=== PATIENT | female | born 2000 ===

== ENCOUNTER 2021-08-23 22:42 | Inpatient (IN) | payer OTHER ==
[~2021-08-23] VITALS: Ht 149.9 cm; Wt 94.4 kg
[2021-08-23 23:00] VITALS: BP 123/74
--- OUTSIDE RECORDS SUMMARY | 2021-08-23 23:35 | CCD | Continuity of Care Document ---
Author Author Ritika LR M.D. Organization Unknown Address [address] [place] [address] Phone [phone] Problems Description No Information Available Social History Type Date Description Comments Sex Unknown Allergies and adverse reactions Description No Information Available Medications Description No Information Available Immunizations Description No Information Available Vital Signs Description No Information Available Results Description No Information Available Procedures Date Code Description Status 08/04/2021 27118 Office/Outpatient Established Mo d MDM 30-39 Min Completed 05/30/2021 23329 Office/Outpatient Established Mo d MDM 30-39 Min Completed 05/02/2021 27926 EEG Recording Awake & Asleep Com pleted 05/02/2021 73356 EEG Recording Awake & Asleep Com pleted 04/13/2021 08790 MRI Brain W/O Contrast Completed 04/13/2021 11558 MRI Brain W/O Contrast Completed 04/13/2021 80450 Magnetic Resonance Angiography N elida W/O Contrast Materials Completed 04/13/2021 80252 Magnetic Resonance Angiography N elida W/O Contrast Materials Completed 04/13/2021 44070 Magnetic Resonance Angiogtaphy H ead W/O Contrast Material(S) Completed 04/13/2021 89410 Magnetic Resonance Angiogtaphy H ead W/O Contrast Material(S) Completed 03/28/2021 26973 Office Consultation Level 4 Comp leted Medical Devices Description No Information Available Encounters Type Date Location Provider Dx Diagnosis Office Visit 08/04/2021 9:45a Main office - [place] M.D. I72.9 Aneurysm of unspecified site R55 Syncope and collapse R94.02 Abnormal brain scan Office Visit 05/30/2021 9:15a Main office - [place] M.D. I72.9 Aneurysm of unspecified site R55 Syncope and collapse R94.02 Abnormal brain scan Office Visit 03/28/2021 12:30p Main office - [place] Florinda rL M.D. R55 Syncope and collapse R42 Dizziness and giddiness R25.8 Other abnormal involuntary m ovements H53.8 Other visual disturbances Assessments Date Code Description Provider 08/04/2021 I72.9 Aneurysm of unspecified site Ruthie Lr M.D. 08/04/2021 R55 Syncope and collapse Florinda sanon M.D. 08/04/2021 R94.02 Abnormal brain scan Florinda Lr M.D. 05/30/2021 I72.9 Aneurysm of unspecified site Ruthie Lr M.D. 05/30/2021 R55 Syncope and collapse Florinda sanon M.D. 05/30/2021 R94.02 Abnormal brain scan Florinda Lr M.D. 05/02/2021 R55 Syncope and collapse Florinda sanon M.D. 05/02/2021 R55 Syncope and collapse EEG 04/13/2021 R55 Syncope and collapse Apoorva Lr M.D. 04/13/2021 R55 Syncope and collapse MRI 04/13/2021 R42 Dizziness and giddiness Apoorva Schuster M.D. 04/13/2021 R42 Dizziness and giddiness MRI 03/28/2021 R55 Syncope and collapse Florinda sanon M.D. 03/28/2021 R42 Dizziness and giddiness Florinda ordonez M.D. 03/28/2021 R25.8 Other abnormal involuntary movem ents Florinda Lr M.D. 03/28/2021 H53.8 Other visual disturbances Florinda Lr M.D. Plan of Treatment Future Appointment(s):* 10/13/2021 10:15 am - Florinda Lr M.D. at Main office - [place] Functional Status Description No Information Available Mental Status Description No Information Available Referrals Refer to Reason for Referral Status Appt Date Created Created
--- OUTSIDE RECORDS SUMMARY | 2021-08-23 23:36 | CCD ---
Author Author [facility] Organization [facility] Address Unknown Phone Unavailable Care Team Providers Care Tangled Yarn Spool Straightener Name Role Phone Jennifer Vang Unavailable PROBLEMS ALLERGIES No Known Allergies ENCOUNTERS from 1999 to 2021-07-28 IMMUNIZATIONS SOCIAL HISTORY REASON FOR REFERRAL No Information VITAL SIGNS MEDICATIONS PROCEDURES No Information RESULTS No Results REASON FOR VISIT MEDICAL (GENERAL) HISTORY Goals Section Health Concerns MEDICAL EQUIPMENT No Information MENTAL STATUS FUNCTIONAL STATUS ASSESSMENTS No Information PLAN OF TREATMENT Insurance Providers
--- OUTSIDE RECORDS SUMMARY | 2021-08-23 23:36 | CCD ---
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 Role Phone Patricio Jim Unavailable PROBLEMS Type Condition ICD9-CM Code [id number] Code Onset Dates Condition S tatus W/U Status Risk SNOMED Code Notes Problem Supervision of other normal Z34.80 Ac tive confirm [id number] ALLERGIES No Known Allergies ENCOUNTERS from 1999 to 2021-06-20 Encounter Location Date Provider Diagnosis [facility] [address] [place] [address] [place] [address] May, Jim Curry Encounter for superv ision of low-risk first in third trimester Z34.03 and 29 weeks gestation of Z3A.29 IMMUNIZATIONS No Information SOCIAL HISTORY Tobacco Use: Social History Observation Description Date Details (start date - stop date) Never Smoker Sex Assigned At : Social History Observation Description Sex Assigned At Unknown Alcohol Screening: Question Answer Notes Did you have a drink containing alcohol in the past year? No Points 0 Interpretation Negative Tobacco Use: Question Answer Notes Are you a: never smoker REASON FOR REFERRAL No Information VITAL SIGNS Weight 187.4 lbs May, Height 59 in May, BMI 37.85 kg/m2 May, Blood pressure systolic 118 mm Hg May, Blood pressure diastolic 70 mm Hg May, MEDICATIONS Medication SIG (Take, Route, Frequency, Duration) Notes Start Da te End Date Status Pepcid 40 MG 1 tablet at bedtime Orally Once a day for 30 day(s) May, Active 27-1 MG 1 tablet Orally Once a day Active PROCEDURES No Information RESULTS No Results REASON FOR VISIT 4 WK PN MEDICAL (GENERAL) HISTORY Type Description Date Medical History Anxiety Surgical History D and C Surgical History Tonsils and adnoids Surgical History wisdom teeth Surgical History Colposcopy x 2 Hospitalization History Surgical related Goals Section No Information Health Concerns No Information MEDICAL EQUIPMENT No Information MENTAL STATUS No Information FUNCTIONAL STATUS No Information ASSESSMENTS Encounter Date Diagnosis Assessment Notes Treatment Notes Treatm ent Clinical Notes May, Encounter for supervision of low-risk first in third trimester (ICD-10 - Z34.03) May, 29 weeks gestation of (ICD-10 - Z3A.29 ) PLAN OF TREATMENT Medication Medication Name Sig Start Date Stop Date Pepcid 40 MG 1 tablet at bedtime Orally Once a day for 30 day (s) May, Next Appt Details Provider Name:Jim Curry, 2021-06-28 03:00:00 PM, [address] [facility], , [place], [address], Insurance Providers Payer Name Payer Address Payer Phone Insured Name Patient Relati onship to Insured Coverage Start Date Coverage End Date [place] [phone] ALIX RAO self
--- OUTSIDE RECORDS SUMMARY | 2021-08-23 23:36 | CCD ---
Author Author [facility] Organization [facility] Address Unknown Phone Unavailable Care Team Providers Care Tier Over Name Role Phone Joseline Barahona Unavailable PROBLEMS Type Condition ICD9-CM Code [id number] Code Onset Dates Condition S tatus W/U Status Risk SNOMED Code Notes Problem Supervision of other normal Z34.80 Ac tive confirm [id number] ALLERGIES No Known Allergies ENCOUNTERS from 1999 to 2021-08-09 Encounter Location Date Provider Diagnosis [facility] [address] [place] [address] [place] [address] Jul, Joseline Barahona IMMUNIZATIONS Vaccine Route Administration Date Status TDAP 0.5mL Boostrix IM Intramuscular Jul 11, 2021 Administere d SOCIAL HISTORY Tobacco Use: Social History Observation [...] REASON FOR REFERRAL No Information VITAL SIGNS No information MEDICATIONS Medication SIG (Take, Route, Frequency, Duration) Notes Start Da te End Date Status Iron 325 (65 Fe) MG 1 tablet Orally Once a day Active 27-1 MG 1 tablet Orally Once a day Active Pepcid 40 MG 1 tablet at bedtime Orally Once a day for 30 day(s) May, Active PROCEDURES No Information RESULTS No Results REASON FOR VISIT appt MEDICAL (GENERAL) HISTORY Type Description Date Medical History Anxiety Surgical History D and C Surgical History Tonsils and adnoids Surgical History wisdom teeth Surgical History Colposcopy x 2 Hospitalization History Surgical related Goals Section No Information Health Concerns No Information MEDICAL EQUIPMENT No Information MENTAL STATUS No Information FUNCTIONAL STATUS No Information ASSESSMENTS No Information PLAN OF TREATMENT Next Appt Details Provider Name:Joseline Gavi Lunafatmata, 2021-08-16 01:20:00 PM, [address] [place] [address], , [place], [address], Provider Name:Jim Curry, 2021-08-23 10:45:00 AM, [address] [place] [address], , [place], [address], Insurance Providers Payer Name Payer Address Payer Phone Insured Name Patient Relati onship to Insured Coverage Start Date Coverage End Date [place] [phone] ALIX RAO self
--- OUTSIDE RECORDS SUMMARY | 2021-08-23 23:36 | CCD | Continuity of Care Document ---
Author Author Ritika LR M.D. Organization Unknown Address [address] [place] [address] Phone [phone] Problems Description No Information Available Social History Type Date Description Comments Sex Unknown Allergies and adverse reactions Description No Information Available Medications Description No Information Available Immunizations Description No Information Available Vital Signs Description No Information Available Results Description No Information Available Procedures Date Code Description Status 05/30/2021 03848 Office/Outpatient Established Mo d MDM 30-39 Min Completed 05/02/2021 58152 EEG Recording Awake & Asleep Com pleted 05/02/2021 67782 EEG Recording Awake & Asleep Com pleted 04/13/2021 17981 MRI Brain W/O Contrast Completed 04/13/2021 65220 MRI Brain W/O Contrast Completed 04/13/2021 86809 Magnetic Resonance Angiography N elida W/O Contrast Materials Completed 04/13/2021 05426 Magnetic Resonance Angiography N elida W/O Contrast Materials Completed 04/13/2021 88060 Magnetic Resonance Angiogtaphy H ead W/O Contrast Material(S) Completed 04/13/2021 50926 Magnetic Resonance Angiogtaphy H ead W/O Contrast Material(S) Completed 03/28/2021 45871 Office Consultation Level 4 Comp leted Medical Devices Description No Information Available Encounters Type Date Location Provider Dx Diagnosis Office Visit 05/30/2021 9:15a [place] M.[place]. I72.9 Aneurysm of unspecified site R55 Syncope and collapse R94.02 Abnormal brain scan Office Visit 03/28/2021 12:30p [place] office - [place] M.D. R55 Syncope and collapse R42 Dizziness and giddiness R25.8 Other abnormal involuntary m ovements H53.8 Other visual disturbances Assessments Date Code Description Provider 05/30/2021 I72.9 Aneurysm of unspecified site Ruthie [...] disturbances Florinda Lr M.D. Plan of Treatment No Information Available Functional Status Description No Information Available Mental Status Description No Information Available Referrals Refer to Reason for Referral Status Appt Date Created Created
--- OUTSIDE RECORDS SUMMARY | 2021-08-23 23:36 | CCD ---
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 Role Phone Patricio Jim Unavailable PROBLEMS Type Condition ICD9-CM Code [id number] Code Onset Dates Condition S tatus W/U Status Risk SNOMED Code Notes Problem Supervision of other normal Z34.80 Ac tive confirm [id number] ALLERGIES No Known Allergies ENCOUNTERS from 1999 to 2021-07-10 Encounter Location Date Provider Diagnosis [facility] [address] [place] [address] [place] [address] Jun, Jim Curry Encounter for superv ision of normal first in third trimester Z34.03 and 31 weeks gestation of Z3A.31 IMMUNIZATIONS No Information SOCIAL HISTORY Tobacco Use: [...] FOR REFERRAL No Information VITAL SIGNS Weight 190.8 lbs Jun, Weight-kg 86.55 kg Jun, Height 59 in Jun, BMI 38.537 kg/m2 Jun, Blood pressure systolic 118 mm Hg Jun, Blood pressure diastolic 74 mm Hg Jun, MEDICATIONS Medication SIG (Take, Route, Frequency, Duration) Notes Start Da te End Date Status Pepcid 40 MG 1 tablet at bedtime Orally Once a day for 30 day(s) May, Active 27-1 MG 1 tablet Orally Once a day Active PROCEDURES from 1999 to 2021-07-10 Procedure Date Ordered Result Body Site Imm: Boostrix 0.5mL IM TDAP 2021-06-28 N/A RESULTS No Results REASON FOR VISIT 2 wk pn MEDICAL (GENERAL) HISTORY Type Description Date Medical [...] Notes Treatment Notes Treatm ent Clinical Notes Jun, Encounter for supervision of normal first in third trimester (ICD-10 - Z34.03) Jun, 31 weeks gestation of (ICD-10 - Z3A.31 ) PLAN OF TREATMENT Medication Medication Name Sig Start Date Stop Date Pepcid 40 MG 1 tablet at bedtime Orally Once a day for 30 day (s) May, Next Appt Details Provider Name:Jim Curry, 2021-07-11 02:15:00 PM, [address] [facility], , [place], [address], Insurance Providers Payer Name Payer Address Payer Phone Insured Name Patient Relati onship to Insured Coverage Start Date Coverage End Date [address] [phone] ALIX RAO self
--- OUTSIDE RECORDS SUMMARY | 2021-08-23 23:36 | CCD ---
Author Author [facility] Organization [facility] Address Unknown Phone Unavailable Care Team Providers Care Tie Inspector Name Role Phone Joseline Barahona Unavailable PROBLEMS Type Condition ICD9-CM Code WCK51-CF Code Onset Dates Condition S tatus W/U Status Risk SNOMED Code Notes Problem Supervision of other normal Z34.80 Ac tive confirm [id number] ALLERGIES No Known Allergies ENCOUNTERS from 1999 to 2021-08-09 Encounter Location Date Provider Diagnosis [facility] [address] [place] [address] [place] [address] Jul, Joseline Barahona Encounter for sup ervision of normal first in third trimester Z34.03 and 37 weeks gestation of Z3A.37 IMMUNIZATIONS Vaccine Route Administration Date Status TDAP [...] FOR REFERRAL No Information VITAL SIGNS Weight 201 lbs Jul, Weight-kg 91.17 kg Jul, Height 59 in Jul, BMI 40.597 kg/m2 Jul, Blood pressure systolic 114 mm Hg Jul, Blood pressure diastolic 78 mm Hg Jul, MEDICATIONS Medication SIG (Take, Route, Frequency, Duration) Notes Start Da te End Date Status Iron 325 (65 Fe) MG 1 tablet Orally Once a day Active 27-1 MG 1 tablet Orally Once a day Active Pepcid 40 MG 1 tablet at bedtime Orally Once a day for 30 day(s) May, Active PROCEDURES No Information RESULTS No Results REASON FOR VISIT 1 WK PN MEDICAL (GENERAL) HISTORY Type Description [...] Notes Treatment Notes Treatm ent Clinical Notes Jul, Encounter for supervision of normal first in third trimester (ICD-10 - Z34.03) Jul, 37 weeks gestation of (ICD-10 - Z3A.37 ) PLAN OF TREATMENT Next Appt Details 1 Week Reason:- Routine follow up Provider Name:Joseline Barahona, 2021-08-16 01:20:00 PM, [address] [place] [phone], [place], [address], Provider Name:Jim Curry, 2021-08-23 10:45:00 AM, [address] [place] [phone], [place], [address], Follow Up:1 Week- Routine follow up Insurance Providers Payer Name Payer Address Payer Phone Insured Name Patient Relati onship to Insured Coverage Start Date Coverage End Date [address] [phone] ALIX RAO self
--- OUTSIDE RECORDS SUMMARY | 2021-08-23 23:36 | CCD ---
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 Name Role Phone Taj Jennifer Unavailable PROBLEMS Type Condition ICD9-CM Code QIR24-DL Code Onset Dates Condition S tatus W/U Status Risk SNOMED Code Notes Problem Supervision of other normal Z34.80 Ac tive confirm [id number] ALLERGIES No Known Allergies ENCOUNTERS from 1999 to 2021-08-13 Encounter Location Date Provider Diagnosis [facility] [address] [facility] [phone] [place] [address] Jul, Jennifer Taj Encounter for superv ision of normal first in third trimester Z34.03 IMMUNIZATIONS Vaccine Route Administration Date Status TDAP [...] FOR REFERRAL No Information VITAL SIGNS Weight 198.2 lbs Jul, Weight-kg 89.9 kg Jul, Height 59 in Jul, BMI 40.032 kg/m2 Jul, Blood pressure systolic 118 mm Hg Jul, Blood pressure diastolic 82 mm Hg Jul, MEDICATIONS Medication SIG (Take, Route, Frequency, Duration) Notes Start Da te End Date Status Iron 325 (65 Fe) MG 1 tablet Orally Once a day Active 27-1 MG 1 tablet Orally Once a day Active Pepcid 40 MG 1 tablet at bedtime Orally Once a day for 30 day(s) May, Active PROCEDURES No Information RESULTS Component Value Reference Range GROUP B STREP CULTURE Reviewed date:08/13/2021 20:28:19 Interpretation: Performing Lab:[facility], [facility] [address] [facility] [address] , ,[place] [address] REASON FOR VISIT 2 wk pn MEDICAL [...] first in third trimester (ICD-10 - Z34.03) PLAN OF TREATMENT Next Appt Details 1 Week Reason:pn Provider Name:Joseline Barahona, 2021-08-16 01:20:00 PM, [address] [place] [address], , [place], [address], Provider Name:Jim Crury, 2021-08-23 10:45:00 AM, [address] [place] [address], , [place], [address], Follow Up:1 Weekpn Insurance Providers Payer Name Payer Address Payer Phone Insured Name Patient Relati onship to Insured Coverage Start Date Coverage End Date [address] [phone] ALIX RAO self
--- OUTSIDE RECORDS SUMMARY | 2021-08-23 23:36 | CCD ---
Author Author [facility] Organization [facility] Address Unknown Phone Unavailable Care Team Providers Care Parakeet Raiser Name Role Phone Kevyn Mullins MD Unavailable Unavailable Kevyn Mullins MD Unavailable Unavailable Kevyn Mullins MD Unavailable Unavailable Kevyn Mullins MD Unavailable Unavailable Kevyn Mullins MD Unavailable Unavailable Kevyn Mullins MD Unavailable Unavailable SANJEEV LYNCH MD Unavailable Unavailable SANJEEV LYNCH MD Unavailable Unavailable SANJEEV LYNCH MD Unavailable Unavailable SANJEEV LYNCH MD Unavailable Unavailable SANJEEV LYNCH MD Unavailable Unavailable SANJEEV LYNCH MD Unavailable Unavailable SANJEEV LYNCH MD Unavailable Unavailable SANJEEV LYNCH MD Unavailable Unavailable SANJEEV LYNCH MD Unavailable Unavailable SANJEEV LYNCH MD Unavailable Unavailable SANJEEV LYNCH MD Unavailable Unavailable SANJEEV LYNCH MD Unavailable Unavailable SANJEEV LYNCH MD Unavailable Unavailable SANJEEV LYNCH MD Unavailable Unavailable SANJEEV LYNCH MD Unavailable Unavailable SANJEEV LYNCH MD Unavailable Unavailable SANJEEV LYNCH MD Unavailable Unavailable SANJEEV LYNCH MD Unavailable Unavailable SANJEEV LYNCH MD Unavailable Unavailable SANJEEV LYNCH MD Unavailable Unavailable SANJEEV LYNCH MD Unavailable Unavailable SANJEEV LYNCH MD Unavailable Unavailable SANJEEV LYNCH MD Unavailable Unavailable SANJEEV LYNCH MD Unavailable Unavailable SANJEEV LYNCH MD Unavailable Unavailable SANJEEV LYNCH MD Unavailable Unavailable SANJEEV LYNCH MD Unavailable Unavailable SANJEEV LYNCH MD Unavailable Unavailable CRIS, SANJEEV MD Unavailable Unavailable CRIS, SANJEEV MD Unavailable Unavailable CRIS, SANJEEV MD Unavailable Unavailable CRIS, SANJEEV MD Unavailable Unavailable CRIS, SANJEEV MD Unavailable Unavailable CRIS, SANJEEV MD Unavailable Unavailable CRIS, SANJEEV MD Unavailable Unavailable CRIS, SANJEEV MD Unavailable Unavailable CRIS, SANJEEV MD Unavailable Unavailable CRIS, SANJEEV MD Unavailable Unavailable CRIS, SANJEEV MD Unavailable Unavailable CRIS, SANJEEV MD Unavailable Unavailable CRIS, SANJEEV MD Unavailable Unavailable CRIS, SANJEEV MD Unavailable Unavailable CRIS, SANJEEV MD Unavailable Unavailable [facility] Unavailable Unavailable Re-disclosure Warning The records that you are about to access may contain information from federally-assisted alcohol or drug abuse programs. If such information is present, then the following federally mandated warning applies: This information has been disclosed to you from records protected by federal confidentiality rules (42 CFR part 2). The federal rules prohibit you from making any further disclosure of this information unless further disclosure is expressly permitted by the written consent of the person to whom it pertains or as otherwise permitted by 42 CFR part 2. A general authorization for the release of medical or other information is NOT sufficient for this purpose. The Federal rules restrict any use of the information to criminally investigate or prosecute any alcohol or drug abuse patient.The records that you are about to access may contain highly sensitive health information, the redisclosure of which is protected by Article 27-F of the [facility] Public Health law. If you continue you may have access to information: Regarding HIV / AIDS; Provided by facilities licensed or operated by the [facility] Office of Mental Health; or Provided by the [facility] Office for People With Developmental Disabilities. If such information is present, then the following [facility] mandated warning applies: This information has been disclosed to you from confidential records which are protected by state law. State law prohibits you from making any further disclosure of this information without the specific written consent of the person to whom it pertains, or as otherwise permitted by law. Any unauthorized further disclosure in violation of state law may result in a fine or detention sentence or both. A general authorization for the release of medical or other information is NOT sufficient authorization for further disc losure. Family History Family Member Name Family Member Gender Family Member Status Date o f Status Description Data Source(s) Unknown Unknown Problem MEDENT ([facility]) Unknown Unknown Problem MEDENT ([facility]) Unknown Unknown Problem MEDENT ([facility]) Encounters Encounter Providers Location Date Indications Data Source(s ) ( ESTOB) enter Est OB [address] [place] [address] 08/08/2021 12:00:00 AM EST eCW1 ([facility]) Unknown [address] [facility] [address] 08/08/2021 12:00:00 AM EST eCW1 ([facility]) Outpatient Attender: SANJEEV LYNCH MD Main office - [facility] 08/04/2021 08:45:00 AM EST MEDENT ([facility]YVI Norman) ( ESTOB) WCenter Est OB [address] [place] [address] 08/02/2021 12:00:00 AM EST eCW1 ([facility]) [place] [address] [facility] [address] 08/02/2021 12:00:00 AM EST eCW1 ([facility]) ( ESTOB) WCenter Est OB [address] [place] [address] 07/27/2021 12:00:00 AM EST eCW1 ([facility]) [place] [address] [facility] [address] 07/27/2021 12:00:00 AM EST eCW1 ([facility]) ( ESTOB) enter Est OB [address] [place] [address] 06/28/2021 12:00:00 AM EDT eCW1 ([facility]) ( ESTOB) enter Est OB [address] [place] [address] 06/14/2021 12:00:00 AM EDT eCW1 ([facility]) Outpatient Attender: SANJEEV LYNCH MD Main office - [facility] 05/30/2021 09:15:00 AM EDT MEDENT ([facility]) Outpatient Attender: SANJEEV LYNCH MD Main office - [facility] 03/28/2021 12:30:00 PM EDT RODRÍGUEZ ([facility] DEYVI huerta) Emergency Attender: Kevyn Mullins MDConsultant: [facility]IN[facility]ARTINEZ 12/23/2020 02:10:00 PM EDT - 12/23/2020 07:00:00 PM EDT [facility] Patient discharged. Immunizations Vaccine Date Status Description Data Source(s) Tdap 07/11/2021 02:42:00 PM EDT completed e CW1 ([facility]) Tdap 07/11/2021 02:42:00 PM EDT completed e CW1 ([facility]) Tdap 07/11/2021 02:42:00 PM EDT completed e CW1 ([facility]) Tdap 07/11/2021 02:42:00 PM EDT completed e CW1 ([facility]) Tdap 07/11/2021 02:42:00 PM EDT completed e CW1 ([facility]) Tdap 07/11/2021 02:42:00 PM EDT completed e CW1 ([facility]) Medications Medication Brand Name Start Date Product Form Dose Route Admi nistrative Instructions Pharmacy Instructions Status Indications Reaction Description Data Source(s) Famotidine 40 MG Oral Tablet [Pepcid] Pepcid 40 MG Pepcid 40 MG 06/14/2021 12:00:00 AM EDT 1.0 {tablet_at_bedtime} active Pepcid 40 MG eCW1 ([facility]) Famotidine 40 MG Oral Tablet [Pepcid] Pepcid 40 MG Pepcid 40 MG 06/14/2021 12:00:00 AM EDT 1.0 {tablet_at_bedtime} active Pepcid 40 MG eCW1 ([facility]) Famotidine 40 MG Oral Tablet [Pepcid] Pepcid 40 MG Pepcid 40 MG 06/14/2021 12:00:00 AM EDT 1.0 {tablet_at_bedtime} active Pepcid 40 MG eCW1 ([facility]) Famotidine 40 MG Oral Tablet [Pepcid] Pepcid 40 MG Pepcid 40 MG 06/14/2021 12:00:00 AM EDT 1.0 {tablet_at_bedtime} active Pepcid 40 MG eCW1 ([facility]) Famotidine 40 MG Oral Tablet [Pepcid] Pepcid 40 MG Pepcid 40 MG 06/14/2021 12:00:00 AM EDT 1.0 {tablet_at_bedtime} active eCW1 ([facility]) Famotidine 40 MG Oral Tablet [Pepcid] Pepcid 40 MG Pepcid 40 MG 06/14/2021 12:00:00 AM EDT 1.0 {tablet_at_bedtime} active eCW1 ([facility]) Famotidine 40 MG Oral Tablet [Pepcid] Pepcid 40 MG Pepcid 40 MG 06/14/2021 12:00:00 AM EDT 1.0 {tablet_at_bedtime} active Pepcid 40 MG eCW1 ([facility]) Famotidine 40 MG Oral Tablet [Pepcid] Pepcid 40 MG Pepcid 40 MG 06/14/2021 12:00:00 AM EDT 1.0 {tablet_at_bedtime} active Pepcid 40 MG eCW1 ([facility]) Insurance Providers Payer name Policy type / Coverage type Policy ID Covered constitution party ID Covered constitution party's relationship to jackson Policy Jackson Plan Information [employer] [id number] FA2 [id number] [employer] [id number] FA2 [id number] [facility] [id number] FA2 [id number] [facility] [id number] CHILD [id number] 2 [facility] Commercial [id number] Family Dependent [id number] [facility] [id number] [place] [id number] [facility] [id number] CHILD [id number] [employer] [id number] [employer] [place] [id number] [place] [id number] [facility] [id number] CHILD [id number] 2 OTHER NO FAULT [id number] S [id number] [facility] [id number] CHILD [id number] 2 OTHER NO FAULT UNAVAILABLE KYLE VAILABLE r/[facility]/[employer] Maintenance Organization (HMO) [id number] Family Dependent [id number] [employer] (HMO) [id number] Family Dependent [employer] PPO O [id number] C [id number] [employer] SELF [id number] CHILD [id number] [employer] Commercial [id number] Family Dependent [employer] SELF [id number] CHILD [id number] [facility] 000 SP [id number] [facility] [id number] SP [id number] [facility] [id number] FA2 [id number] [facility] [place] - O/P [id number] 19 [id number] [facility] [id number] CHILD [id number] Problems, Conditions, and Diagnoses Code Display Name Description Problem Type Effective Dates Data Source(s) Z3A01 Less than 8 weeks gestation of Less than 8 weeks gestation of Diagnosis 12/23/2020 02:10:00 PM EDT [facility] R1030 Lower abdominal pain, unspecified Lower abdomina l pain, unspecified Diagnosis 12/23/2020 02:10:00 PM EDT [facility] E47140 Other specified related condit ions, first trimester Other specified related conditions, first trimester Diagnosis 12/23/2020 02:10:00 PM EDT [facility] Z34.80 care Supervision of other normal P roblem 04/28/2021 12:00:00 AM EDT eCW1 ([facility]) Surgeries/Procedures Procedure Description Date Indications Data Source(s) OFFICE OUTPATIENT VISIT 25 MINUTES 08/04/2021 12:00:00 AM EST MEDJESSICA ([facility] ) TDAP VACCINE 7/> YR IM 06/28/2021 12:00:00 AM EDT eCW1 ([facility]) OFFICE OUTPATIENT VISIT 25 MINUTES 05/30/2021 12:00:00 AM EDT MEDJESSICA ([facility]) ELECTROENCEPHALOGRAM W/REC AWAKE&ASLEEP 05/02/2021 12: 00:00 AM EDT MEDENT ([facility] ) ELECTROENCEPHALOGRAM W/REC AWAKE&ASLEEP 05/02/2021 12: 00:00 AM EDT MEDENT ([facility] ) Magnetic Resonance Angiogtaphy Head W/O Contrast Material(S) 04/13/2021 12:00:00 AM EDT MEDENT ([facility]) Magnetic Resonance Angiogtaphy Head W/O Contrast Material(S) 04/13/2021 12:00:00 AM EDT MEDENT ([facility]) Magnetic Resonance Angiography Neck W/O Contrast Materials 04/13/2021 12:00:00 AM EDT MEDENT ([facility]) Magnetic Resonance Angiography Neck W/O Contrast Materials 04/13/2021 12:00:00 AM EDT MEDENT ([facility]) MRI BRAIN BRAIN STEM W/O CONTRAST MATERIAL 04/13/2021 12:00:00 AM EDT MEDENT ([facility] ) MRI BRAIN BRAIN STEM W/O CONTRAST MATERIAL 04/13/2021 12:00:00 AM EDT MEDENT ([facility] ) OFFICE CONSULTATION NEW/ESTAB PATIENT 60 MIN 12:00:00 AM EDT MEDENT ([facility] ) Colposcopy Of Cervix W/Biopsy Cervix/Endocervical Curettage 08/02/2020 12:00:00 AM EST MEDENT ([facility]) Results ID Date Data Source GROUP B STREP CULTURE 07/27/2021 12:00:00 AM EST eCW1 ([facility]) Name Value Range Interpretation Code Description Data Kary rce(s) Supporting Document(s) GROUP B STREP CULTURE eCW1 ([facility]) ID Date Data Source [id number] 12/26/2020 10:12:00 AM EDT [facility] [address] [place] [address] PHONE: [phone] FAX: [phone] Name .................. : JALEN THOMSON Acct Number.................. : [id number] ROOM. ................. : MR Number ................... : [id number] Stay type ............. : E/R Discharge Date......... ... : 12/23/20 Admit Date ......... : 12/23/20 Admit Phys .................... : RODERICK Valdez Date of ....... : 2000 Family Phys ................... : UNKNOWN Phone .................. : [phone] Age ................................ : 20 Film# .................. .:[id number] Sex ................................. : F Unsigned transcriptions are preliminary reports and do not represent a medical or legal document [place] [id number] COMPLETE:12/23/20 19:44 ADB 8404 Reason for Exam: CRAMPING T RANSVAGINAL OB ULTRASOUND: INDICATION: Cramping. FINDINGS: There is a small fluid-filled sac in the endometrium measuring 2 mm in diameter. If this is a gestational sac, the estimated gestational age is 4 weeks 4 days. No pole or heart rate is visualized. The left adnexa contains a small to moderate amount of fluid measuring 1.9 x 1.2 x 1.0 cm. The right adnexa contains a moderate to large amount of fluid measuring 4.6 x 5.7 x 2.4 cm. The bilateral ovaries are sonographically normal. IMPRESSION: Possible early intrauterine . An ectopic is not excluded due to bilateral free fluid in the adnexa. Recommend follow up ultrasound and beta hCG levels. Electronically Reviewed and Signed By Jeramie Norman M.D. , 12/26/20 10:12, [facility] Transcribe Initials: NOAH , Transcribe Date: 12/24/20 03:45, Dictation Date: Copy for: EMERGENCY DEPT via modem Copy for: 710 MED REC DISCHARGED Page 1 of 1 Name Value Range Interpretation Code Description Data Kary rce(s) Supporting Document(s) ID Date Data Source [id number] 12/26/2020 10:12:00 [place] [address] PHONE: [phone] FAX: [phone] Name .................. : JALEN THOMSON Acct Number.................. : [id number] ROOM. ................. : VT-02 Number ................... : [id number] Stay type ............. : E/R Discharge Date......... ... : 12/23/20 Admit Date ......... : 12/23/20 Admit Phys .................... : RODERICK Valdez Date of ....... : 2000 Family Phys ................... : UNKNOWN Phone .................. : [phone] Age ................................ : Film# .................. .:[id number] Sex ................................. : F Unsigned transcriptions are preliminary reports and do not represent a medical or legal document OB 1ST TRI W TV IF NEEDED [id number] COMPLETE:12/23/20 19:44 ADB 8399 Reason(s): Left sided and LLQ abd pain, 4-6 wks gestation, ? ectopic FIRST TRIMESTER OB ULTRASOUND: INDICATION: Left-sided and left lower quadrant pain. 4-6 weeks gestation. FINDINGS/IMPRESSION: The uterus is not well visualized on this examination. The bilateral ovaries are not well- visualized. This examination is nondiagnostic. Please see transvaginal report for further details. Electronically Reviewed and Signed By Jeramie Norman M.D. , 12/26/20 10:12, [facility] Transcribe Initials: DZ , Transcribe Date: 12/24/20 03:43, Dictation Date: Copy for: [facility] via fax Copy for: EMERGENCY DEPT via [facility] Copy for: 710 MED REC DISCHARGED Page 1 of 1 Name Value Range Interpretation Code Description Data Kary rce(s) Supporting Document(s) ID Date Data Source [id number] 12/23/2020 02:10:00 PM EDT [facility] 1 OrderSheet [facility] Emergency Department [address] [place] [address] Phone #: ext- [phone] 12/23/2020 13:55 Patient: ALIX RAO Sex: F : 2000 Age: 20yWEIGHT:79.8 kg (S) HEIGHT:59 inches (S) BMI:35.6ALLERGIES: No Known Drug AllergyCHIEF COMPLAINT: abdominal painDIAGNOSIS: Patient currently , Ectopic pregnancyLAB ORDERSOrder Description Priority Entered Acknowledged InitialedBeta-HCG, Quant STAT 15:12 12/23/2020 15:16 Jose Antonio,Serum Ángel EMMANUEL; Dominik SungCBC w Diff STAT 15:12 12/23/2020 15:16 Ángel Brady; Dominik RТатьянаCMP STAT 15:12 12/23/2020 15:16 Ángel Brady; Dominik SungLactic Acid STAT 15:12 12/23/2020 15:16 Ángel Brady; Dominik SungLipase STAT 15:12 12/23/2020 15:16 Ángel Brady; Dominik SungUrinalysis (Clean STAT 15:12 12/23/2020 15:13 Sanjay,Neeraj) Ángel EMMANUEL; Lu SungDIAGNOSTIC STUDY ORDERSOrder Description Priority Entered Acknowledged InitialedUS OB 1ST TRI W STAT 16:49 12/23/2020 16:52 Jose Antonio,TV IF NEEDED Ángel EMMANUEL; Dominik Sung(Oxygen?(No))(IV?(No)) Reason for Study: Left sided and LLQ abd pain, 4-6 wks gestation, ? ectopicMEDICATION/IV/DRIP/FLUID ORDERSOrder Description Priority Entered Acknowledged InitialedGENERAL ORDERSOrder Description Priority Entered Acknowledged InitialedNPO 15:12 12/23/2020 15:13 Ángel Grace; Lu SungWarm blanket 15:12 12/23/2020 15:13 Ángel Grace; Lu SungVitals 15:12 12/23/2020 15:16 Jose Antonio, 2 OrderSheet [facility] Emergency Department [address] [place] [address] Phone #: ext- [phone] 12/23/2020 13:55 [id number] Sex: [facility] 2000 Age: 20y Ángel EMMANUEL; Dominik Sung[Electronically signed by Lu Grace R.N. (:12/23/2020)][Electronically signed by Ángel Jimenez (19:12/23/2020)][Electronically locked by Lu Grace R.N. (:12/23/2020)] Name Value Range Interpretation Code Description Data Kary rce(s) Supporting Document(s) ID Date Data Source [id number] 12/23/2020 02:10:00 PM EDT [facility] 1 Medication Reconciliation Report [facility] Emergency Department [address] [place] [address] Phone #: ext- [phone] 12/23/2020 13:55 [id number] Sex: F : 2000 Age: 20yWeight: 79.8 kgHeight/Length: 59 in.BMI: 35.6ALLERGIES: No Known Drug AllergyThe patient's Home Medications are listed below:NONE.The source(s) of the original Home Medication information:Not obtained.The following Medications were given to the patient in the Emergency Department:None.The following Medications were prescribed to the patient:None. Name Value Range Interpretation Code Description Data Kary rce(s) Supporting Document(s) ID Date Data Source [id number] 12/23/2020 02:10:00 PM EDT [facility] 1 Medication Administration Record [facility] Emergency Department [address] [place] [address] Phone #: ext- [phone] 12/23/2020 13:55 Patient: ALIX RAO Sex: Matthieu : 2000 Age: 20yWeight: 79.8 kgHeight/Length: 59 inBMI: 35.6ALLERGIES: No Known Drug AllergyDate/Time Medication Administered Medication Ordered Name Value Range Interpretation Code Description Data Kary rce(s) Supporting Document(s) ID Date Data Source [id number] 12/23/2020 02:10:00 PM EDT [facility] 1 General Instructions [facility] Emergency Department [address] [place] [address] Phone #: ext- [phone] 12/23/2020 13:55 Patient: ALIX RAO Sex: F : 2000 Age: 20yEctopic .First trimester ; positive test in emergency department.INSTRUCTIONSNo strenuous activity until better. Rest at home for one days. Do not work for two days.Drink plenty of fluids for the next 48 hours as needed. Avoid alcohol and NSAIDS. NSAIDS includeaspirin, ibuprofen (Advil) and naproxen (Aleve). Avoid fatty, fried/greasy, lactose-containing (such as milk,cheese and ice cream), salty and spicy foods until better. No sexual contact until symptoms resolve. Noalcohol. Do not smoke.(continue pre vitamins, continue tylenol for pain).Warnings: Further evaluation is necessary in order to conduct further tests and assess the possibility ofserious illness. It is very important to follow up with a healthcare provider.GENERAL WARNINGS: Return or contact your physician immediately if your condition worsens orchanges unexpectedly, if not improving as expected, or if other problems arise. SPECIFICALLY, return ifyou develop pain in the abdomen or pelvis, fever, vomiting, the inability to keep fluids down, blood invomitus, blood in diarrhea, fainting, lightheadedness or vaginal bleeding; or for continued pain in theabdomen.Your Current Medications: .No home medication.Follow-up:Follow up with your healthcare provider in three days even if well. Call for the next available appointment.Reason for referral: evaluation and , F/u with your OB/PCM-recommend serial b-HCG testing and f/u OBUS for ? ectopic v. IUP.. Summary of care provided to patient via paper.Understanding of the discharge instructions verbalized by patient. Expected course of illness, dischargeinstructions, activity level, follow-up appointment and risks and benefits of treatment reviewed with patientand understanding verbalized. Agrees to plan of care. ADDITIONAL INFORMATIONPregnancy 2 General Instructions [facility] Emergency Department [address] [place] [address] Phone #: ext- [phone] 13:55 Patient: ALIX RAO Sex: F : 2000 Age: 20yYour exam today shows that you are . symptomsDuring your body's hormones change. This causes physical and emotional changes. Thisis normal. Knowing what to expect is important for your piece of mind and so you know when to seekhelp for a problem. Here are some of the most common symptoms: Morning sickness or nausea. This can happen any time of the day or night. Tender, swollen breasts Need to urinate frequently Tiredness or fatigue Dizziness Indigestion or heartburn Food cravings or turn-offs Constipation Emotional changes. This can range from anxiety to excitement to depression.General care for a healthy pregnancyHere are things you can do to help make sure your baby is born healthy: 3 General Instructions [facility] Emergency Department [address] [place] [address] Phone #: ext- [phone] 12/23/2020 13:55 [id number] Sex: F : 2000 Age: 20y Rest when you feel tired. This is especially true in the later months of . Drink more fluids. Your body needs more fluids than you may be used to. Drink 8 to10 glasses of juice, milk, or water every day. Eat well-balanced meals. Eat at regular times to give your body enough protein. You can expect to gain about 30 pounds during the . Don't try to diet or lose weight while you are . Take a vitamin every day. This helps you meet the extra nutritional needs of . Don't take any other medicine during your unless your healthcare provider tells you to. This includes prescription medicines and those you buy over the counter . Many medicines can harm the growing baby. If you have nausea or vomiting, don't eat greasy or fried foods. Eat several smaller meals throughout the day rather than 3 large meals. If you smoke, you must stop. The nicotine you breathe in goes right to the baby. Stay away from alcohol, even in moderate amounts. Daily drinking will harm your baby and can cause permanent brain damage. Don't use recreational drugs, especially cocaine, crack, and heroin. These will harm your baby. Also avoid marijuana. If you were using recreational drugs or prescribed medicine when you found out that you were , talk with your healthcare provider about possible effects on your growing baby. If you have medical problems that you need to take medicine for, talk with your healthcare provider.Follow-up careCall your healthcare provider to arrange for care. care is important. You can seeyour family provider, a specialist (cloth cutting inspector), a high court justice, or a primary care clinic.When to seek medical adviceCall your healthcare provider right away if any of these occur: Vaginal bleeding Pain in your belly (abdomen) or back that is moderate or severe Lots of vomiting, or you can't keep any fluids down for 6 hours 4 General Instructions [facility] Emergency D epartment [address] [place] [place] [address] Phone #: ext- [phone] 12/23/2020 13:55 Patient: ALIX RAO Sex: F : 2000 Age: 20y Burning feeling when you urinate Headache, dizziness, or rapid weight gain Fever Vision changes or blurred vision [id number] [employer]. [address] [place] [address], [place] [address]. All rights reserved. This information is not intended as asubstitute for professional medical care. Always follow your healthcare professional's instructions.PregnancyYour exam today shows that you are . symptomsDuring your body's hormones change. This causes physical and emotional changes. Thisis normal. Knowing what to expect is important for your piece of mind and so you know when to seekhelp for a problem. Here are some of the most common symptoms: Morning sickness or nausea. This can happen any time of the day or night. Tender, swollen breasts Need to urinate frequently Tiredness or fatigue 5 General Instructions [facility] Emergency Department [address] [place] [address] Phone #: ext- [phone] 12/23/2020 13:55 Patient: ALIX RAO Sex: F : 2000 Age: 20y Dizziness Indigestion or heartburn Food cravings or turn-offs Constipation Emotional changes. This can range from anxiety to excitement to depression.General care for a healthy pregnancyHere are things you can do to help make sure your baby is born healthy: Rest when you feel tired. This is especially true in the later months of . Drink more fluids. Your body needs more fluids than you may be used to. Drink 8 to10 glasses of juice, milk, or water every day. Eat well-balanced meals. Eat at regular times to give your body enough protein. You can expect to gain about 30 pounds during the . Don't try to diet or lose weight while you are . Take a vitamin every day. This helps you meet the extra nutritional needs of . Don't take any other medicine during your unless your healthcare provider tells you to. This includes pre scription medicines and those you buy over the counter. Many medicines can harm the growing baby. If you have nausea or vomiting, don't eat greasy or fried foods. Eat several smaller meals throughout the day rather than 3 large meals. If you smoke, you must stop. The nicotine you breathe in goes right to the baby. Stay away from alcohol, even in moderate amounts. Daily drinking will harm your baby and can cause permanent brain damage. Don't use recreational drugs, especially cocaine, crack, and heroin. These will harm your baby. Also avoid marijuana. If you were using recreational drugs or prescribed medicine when you found out that you were , talk with your healthcare provider about possible effects on your growing baby. If you have medical problems that you need to take medicine for, talk with your healthcare provider.Follow-up care 6 General Instructions [facility] Emergency Department [address] [place] [address] Phone #: ext- [phone] 12/23/2020 13:55 Patient: ALIX RAO Sex: F : 2000 Age: 20yCall your healthcare provider to arrange for care. care is important. You can seeyour family provider, a specialist (cloth cutting inspector), a high court justice, or a primary care clinic.When to seek medical adviceCall your healthcare provider right away if any of these occur: Vaginal bleeding Pain in your belly (abdomen) or back that is moderate or severe Lots of vomiting, or you can't keep any fluids down for 6 hours Burning feeling when you urinate Headache, dizziness, or rapid weight gain Fever Vision changes or blurred vision [id number] [employer]. [address] [place] [address], [place] [address]. All rights reserved. This information is not intended as asubstitute for professional medical care. Always follow your healthcare professional's instructions.Abdominal Pain and Early PregnancyThe tests you had show that you are , but the exact cause of your pain isn't clear.Some pain and bleeding are common early in . Often they stop, and you can go on to havea normal and baby. Other times the pain or bleeding can be signs ofa miscarriage or ectopic . An ectopic is a very serious problem. At this time it is 7 General Instructions [facility] Em ergency Department [address] [place] [address] Phone #: ext- [phone] 12/23/2020 13:55 Patient: ALIX RAO Sex: F : 2000 Age: 20yunclear if your will continue normally, if you will have a miscarriage, or if you could have anectopic . Below is some information about this.MiscarriageAt this time we don't know whether you will have a miscarriage, or if things will clear up and yourpregnancy will continue normally. We understand that this is emotionally difficult. There is little we cansay to change the way you feel. But understand that miscarriages are common.About 1 or 2 out of every [address] Some end even before you know you are. This happens for a number of reasons, and usually we never figure out why. It's importantyou know that it is not your fault. It didn't happen because you did anything wrong.Having sex or exercising does not cause a miscarriage. These activities are usually safe unless youhave pain or bleeding or your healthcare provider tells you to stop. Even minor falls won't cause amiscarriage. Miscarriages happen because things were not developing as they were supposed to. Nomedicine can prevent a miscarriage.Ectopic pregnancyIn a normal , the fertilized egg attaches to the wall of the womb (uterus). In an ectopic ortubal , the fertilized egg attaches outside the uterus, usually in the fallopian tube. Veryrarely, the egg attaches to an ovary or somewhere else in the abdomen. An ectopic ismuch less common than a miscarriage, but it is very serious. The baby can't survive, and as it growsit can rupture the tube. This can cause internal bleeding and even . Risk factors for an ectopicare: An ectopic in the past Pelvic inflammatory disease (PID) Endometriosis Smoking An IUDAdditional testsBecause we don't know what's causing your symptoms, you will need more tests to figure out whatthe problem is. You may need the following.UltrasoundAn ultrasound can usually find a normal as early as 4 to 5 weeks along. If the ultrasounddoes not show the baby inside the uterus, it means one of the following. 8 General Instructions [facility] Emergency Department [address] [place] [address] Phone #: ext- [phone] 12/23/2020 13:55 Patient: ALIX RAO Sex: F : 2000 Age: 20y You have a normal less than 4 weeks along You are having or recently had a miscarriage You have an ectopic pregnancyQuantitative HCGThis test measures the amount of a hormone in your blood. Comparing today's test resultto a repeat test in 2 days will show whether you have a normal .LaparoscopyThis is a type of surgery. The healthcare provider will put a tube with a light inside your belly(abdomen) to look directly at your pelvic organs. This test is used when it is not safe to wait 2 days forblood test results.Important informationIf you do have an ectopic , there is a small chance that the growing fetus can tear thefallopian tube. This can cause severe internal bleeding. If this happens, you may have: Sudden severe pain in your lower abdomen Vaginal bleeding Weakness, dizziness, and sometimes faintingIf any of these symptoms occur: Call 911or return right away to the hospital. Don't drive yourself. Don't go to your healthcare provider's office or to a clinic. Go to the hospital.Home careFollow these guidelines to help care for yourself at home: Rest until your next exam. Don't do anything strenuous. Eat a light diet with foods that are easy to digest. Don't have sex until your healthcare provider says it's OK.Follow-up careFollow up with your healthcare provider, or as advised. If you were told to have a repeat blood test in 9 [facility] Emergency Department [address] [place] [address] Phone #: ext- [phone] 12/23/2020 13:55 Patient: ALIX RAO Sex: F : 2000 Age: 20y2 days, it's important to get it done.If you had an X-ray or ultrasound, a radiologist will review it. You will be told of any new findings thatmay affect your care.Call 911Call 911 if you have any of these: Severe pain and very heavy bleeding Severe lightheadedness, passing out, or fainting Rapid heart rate Trouble breathing Confused or difficulty waking upWhen to seek medical adviceCall your healthcare provider right away if any of these occur: The pain in your abdomen gets worse, either suddenly or gradually. You are dizzy or weak when you stand. You have heavy vaginal bleeding. This means soaking 1 pad an hour for 3 hours. You have vaginal bleeding for more than 5 days. You have repeated vomiting or sandy rrhea. The pain in your abdomen moves to the lower right. You have blood in your vomit or bowel movements. This will be dark red or black. You have a fever of 100.4F (38C) or higher, or as directed by your healthcare provider. [id number] [employer]. [address] [place] [address], [place] [address]. All rights reserved. This information is not intended as asubstitute for professional medical care. Always follow your healthcare professional's instructions.Gordon DietYour healthcare provider may recommend a bland diet if you have an upset stomach. It consists offoods that are mild and easy to digest. It is better to eat small frequent meals rather than 3 largemeals a day. 10 General Instructions [facility] Emergency Department [address] [place] [address] Phone #: ext- [phone] 12/23/2020 13:55 Patient: ALIX RAO Sex: F : 2000 Age: 20yBeveragesOK: Fruit juices, non-caffeinated teas and coffee, non-carbonated watersAvoid: Carbonated beverage, caffeinated tea and coffee, all alcoholic beveragesBreadOK: Refined white, wheat or rye bread, ruddy or soda crackers, Sharlene toast, plain rolls, bagelsAvoid: Whole-grain breadCerealOK: Refined cereals: cooked or ready to eatAvoid: Whole-grain cereals and granola, or those containing bran, seeds or nutsDessertsOK: Peanut butter and all others except those to "avoid"Avoid: Chocolate, cocoa, coconut, popcorn, nuts, seeds, jam, marmaladeFruitsOK: Canned, cooked, frozen or fresh fruits without seeds or tough skinAvoid: Olives, skin and seeds of fruit, dried fruitMeats 11 General Instructions [facility] Emergency Department [address] [place] [address] Phone #: ext- [phone] 12/23/2020 13:55 Patient: ALIX RAO Sex: F : 2000 Age: 20yOK: All fresh or preserved meat, fish and fowlAvoid: Any that are prepared with those spices to "avoid"Cheese and eggsOK: Eggs, cottage cheese, cream cheese, other cheesesAvoid: All cheeses made with those spices to "avoid"Potatoes and pastaOK: Potato, rice, macaroni, noodles, spaghettiAvoid: NoneSoupsOK: All soups without heavy seasoningAvoid: Soups made with those spices to "avoid"VegetablesOK: Canned, cooked, fresh or frozen mildly flavored vegetables without seeds, skins or coarse fiberAvoid: Vegetables prepared with those spices to "avoid"; skin and seeds of vegetables and those withcoarse fiber, broccoli, cabbage, cauliflower, cucumber, green peppers, and cornSpicesOK: Salt, lemon and limejuice, vinegar, all extracts, judith, cinnamon, thyme, mace, allspice, paprikaAvoid: Sanders powder, cloves, pepper, seed spices, garlic, gravy pickles, highly seasoned saladdressings [phone] [employer] [place] [address]. All rights reserved. This information is not intended as asubstitute for professional medical care. Always follow your healthcare professional's instructions.Clear Liquid Diet 12 General Instructions [facility] Emergency Department [address] [place] [address] Phone #: [phone]- [phone] 12/23/2020 13:55 Patient: ALIX RAO Sex: F : 2000 Age: 20yClear liquids are any liquid that you can see through. They are also very easy to digest. You may beput on a clear liquid diet if you are recovering from irritation or infection of the stomach or digestivetract. This diet may also be used before surgery or special procedures such as a colonoscopy. Youshould not be on this diet for more than 3 days. Below are some clear liquids you can have on thisdiet.Adults and children over 2 years oldAd ults should drink a total of 2 to 3 quarts of liquid per day. It may be easier to drink small frequentservings rather than a few large ones. Clear liquids can include: Clear fruit juices without pulp. Apple, white grape, and cranberry juice; clear fruit drinks. Beverages. Sport drinks, sodas, mineral water (plain or flavored), tea, black coffee, liquid gelatin (add twice the recommended amount of water). Soups. Clear broth. Desserts. Plain gelatin, frozen fruit juice bars without pulp or fruit pieces.Children under 2 years oldOral rehydration fluids are available at [employer] and most grocery stores. You don't need aprescription. [id number] [employer]. [address] [place] [address]. All rights reserved. This information is not intended as asubstitute for professional medical care. Always follow your healthcare professional's instructions. You have been given the following additional information: , New Dx , New Dx Abdominal Pain, Early Florin Ramsey (Adult) 13 General Instructions [facility] Emergency Department [address] [place] [address] Phone #: ext- [phone] 12/23/2020 13:55 Patient: ALIX RAO Sex: F : 2000 Age: 20yClear Liquid DietNo strenuous activity until better. Rest at home for one days. Do not work for two days.(Electronically signed by CHOLO Wallace 12/23/2020 19:23) Name Value Range Interpretation Code Description Data Kary rce(s) Supporting Document(s) ID Date Data Source [id number] 12/23/2020 02:10:00 PM EDT [facility] 1 Clinical Report - Nurses [facility] Emergency Department [address] [place] [address] Phone #: ext- [phone] 12/23/2020 13:55 Patient: ALIX RAO Sex: F : 2000 Age: 20yTRIAGEArrived by private vehicle. Historian: patient. Accompanied by family.Acuity: LEVEL 4.Chief Complaint: ABDOMINAL CRAMPS and (dizzy, nausea).Alert. No acute distress.Onset. (4 days ago). ( PT had a positive home test 1 hour ago that she took because she washaving low er abdominal cramps, dizziness, and nausea for 4 days. She denies any vaginal bleeding at thistime. Her last normal menstrual cycle was oct 11 but has had scant spotting November 10-December 02. She isconcerned because she has had a miscarriage before and her mother had an ectoptic .).Treatment ENVIRONMENTAL REMEDIATION SPECIALIST:None.SEPSIS SCREEN: SIRS SCREEN NEGATIVE: heart rate greater than 90. SEPSIS SCREEN NEGATIVE.No suspected or confirmed signs of infection present.DANILO COMA SCORE: 15- eyes open- spontaneous (4); best verbal response- oriented (5); bestmotor response- obeys commands (6). --14:05 12/23/20 Lu Grace R.N.13:57 12/23/20. BP: 117/82. MAP: 93. HR: 106. RR: 18. O2 saturation: 99%. Temp: 98.1 F. Pain levelnow: 0/10. --14:05 12/23/20 Lu Grace R.N.Weight: 79.8 kg stated. Height/Length: 59 inches Per Patient. BMI: 35.6. --14:03 12/23/20 Lu Grace R.N.MedicationsNone. --14:01 12/23/20 Lu Grace R.N.AllergiesNo Known Drug Allergy. --14:01 12/23/20 Lu Grace R.N.PROBLEMS:no known problem s.ADDITIONAL SURGERIES:Dilatation Curettage.Tonsillectomy Adenoidectomy.[place] teeth removal. --14:03 12/23/20 Lu Grace R.N. 2 Clinical Report - Nurses [facility] Emergency Department [address] [place] [address] Phone #: ext- [phone] 12/23/2020 13:55 Patient: ALIX RAO Sex: F : 2000 Age: 20y History PAST MEDICAL HX: Last normal menstrual period- Oct 11. 2. Para 1. Currently . SOCIAL HX: Never smoker. No alcohol use or drug use. The patient was offered HIV testing but declined and hepatitis C testing but declined. The patient has not traveled outside the [place] Infectious disease exposure: The patient was not exposed to C-diff, MRSA, VRE, CRE or Coronavirus. SELF HARM ASSESSMENT: Self harm assessment was performed. The patient answered "no" to the question(s) "Have you recently felt down, depressed, or hopeless?", "Do you have thoughts of harming or killing yourself?", "Do you have a plan for harming or killing yourself?", "Have you recently had thoughts about harming or killing others?", "Do you have any dangerous items in your possession?", "Have you noticed less interest or pleasure in doing things?", "Are you here because you tried to hurt yourself?" and "Have you ever tried to hurt yourself before today?". ABUSE ASSESSMENT: No report of abuse. NUTRITIONAL RISK ASSESSMENT: The nutritional risk assessment revealed no deficiencies. FUNCTIONAL ASSESSMENT: Functional assessment: no impairments noted. LEARNING NEEDS ASSESSMENT: The learning needs assessment revealed no barriers. FALL RISK ASSESSMENT: Fall risk assessment completed. No risk factors identified. SKIN INTEGRITY ASSESSMENT: Skin integrity risk assessment completed. No skin integrity risk identified. --14:05 12/23/20 Lu Grace R.N. Interventions Identification band on patient. To treatment room. No allergy band on patient. --14:05 12/23/20 Lu Grace R.N.PHYSICAL [id number]:31 12/23/20. Ambulatory to room. Patient gowned.GENERAL / NEURO / PSYCH: Alert. Oriented X 4. Appears in no acute distress.HEENT: Mucous membranes are pink.RESPIRATORY: Respirations not labored. Breath sounds within normal limits.CVS: Capillary refill less than 2 seconds.GI / : Abdomen soft and nontender. Bowel sounds within normal limits.EXTREMITIES: No lower extremity edema.SKIN: Skin is warm and dry. --14:33 12/23/20 Dominik Brady R.N.NURSING PROGRESS NOTES14:33 12/23/20. Patient gowned. Reassurance given. Two patient identifiers checked. Call lightplaced in reach. Bed placed in lowest position. Brakes of bed on. Patient ready for evaluation- PA 3 Clinical Report - Nurses [facility] Emergency Department [address] [place] [address] Phone #: ext- [phone] 12/23/2020 13:55 Patient: ALIX RAO Sex: F : 2000 Age: 20y notified. --14:33 12/23/20 Dominik Brady R.N. 15:34 12/23/20. Reassurance judd saleh. Reassessment acuity: LEVEL 3. The patient reports no complaints, she is calm, resting quietly and sleeping and she has had no adverse reaction. Overall patient status is improved- she states feels better. Two patient identifiers checked. Call light placed in reach. Side rails up x 2. Bed placed in lowest position. Brakes of bed on. --17:35 12/23/20 Dominik Brady R.N. 16:35 12/23/20. Reassurance given. Reassessment acuity: LEVEL 3. The patient reports no complaints, she is calm and resting quietly and she has had no adverse reaction. Overall patient status is improved- she states feels better. GI / : Denies nausea. Two patient identifiers checked. Call light placed in reach. Bed placed in lowest position. Brakes of bed on. --17:36 12/23/20 Dominik Brady R.N. 17:36 12/23/20. Reassurance given. Reassessment acuity: LEVEL 3. The patient reports no complaints, she is calm and resting quietly and she has had no adverse reaction. Overall patient status is improved- she states feels better. GI / : Denies nausea. [facility]. Two patient identifiers checked. Call light placed in reach. Bed placed in lowest position. Brakes of bed on. --17:36 12/23/20 Dominik Brady R.N. 18:12 12/23/20. Patient returned from sonogram by wheelchair with processing tech. --18:12 12/23/20 Dominik Brady R.N.DISPOSITION / DISCHARGE Condition at departure: stable. No learning barriers present. Discharge instructions provided and reviewed with the patient. Reviewed referral to an cloth cutting inspector. Work note given. Patient verbalized understanding. Written instructions provided in Portuguese. ( Instructed to follow up with OB for HCGs and to return for any worsening pain). The patient was discharged by the physician culture media laboratory assistant. She was discharged home and accompanied by family. She left ambulatory and via private vehicle. Family member driving. --19:00 12/23/20 Lu Grace R.N. 18:57 12/23/20. BP: 133/71. MAP: 91. HR: 114. RR: 20. O2 saturation: 100%. Temp: 97.6 F. Pain level now: 01/23. --19:00 12/23/20 Lu Grace R.N.Locked/Released at 12/23/2020 19:00 by Lu Grace R.N. Name Value Range Interpretation Code Description Data Kary rce(s) Supporting Document(s) ID Date Data Source [id number] 12/23/2020 02:10:00 PM EDT [facility] 1 Clinical Report - Physicians/Mid Levels [facility] Emergency Department [address] [place] [address] Phone #: ext- [phone] 12/23/2020 13:55 Patient: ALIX RAO Sex: F : 2000 Age: 20y Time Seen: 14:04 12/23/2020. Arrived- By private vehicle. Historian- patient. Disposition decision: 18:33 12/23/2020.HISTORY OF PRESENT ILLNESS Chief Complaint: ABDOMINAL PAIN. This started about 4 days ago; Lower abdominal pain (cramping) x 4 days, positive home test today. No vaginal bleeding. No NVD. It is described as cramping. No radiation. It is described as located in the lower abdomen, in the pelvic area and in the suprapubic area. At its maxi mum, severity described as 5 / 10. When seen in the E.D., severity described as 5 / 10. Modifying factors. Not worsened by anything. Not relieved by anything. No nausea, loss of appetite, vomiting or diarrhea. No additional abdominal pain. No recent travel. Similar symptoms previously. None. Recent medical care: Not recently seen/assessed.REVIEW OF SYSTEMSLast normal menstrual period- 11 Oct 2020. No constipation, black stools, hematemesis, difficulty withurination or pain with urination. No urinary frequency, bloody stools, fever, headache or sore throat. Noblurred vision, chest pain, difficulty breathing, cough or joint pain. No skin rash, chills or back pain.Currently . Last bowel movement: today. The patient has not had weight loss.PAST HISTORYSee nurses notes. Problems: . Additional Surgeries: Dilatation Curettage. Tonsillectomy Adenoidectomy. [place] teeth removal. Medications: None. Allergies: No Known Drug Allergy.SOCIAL HISTORYNever smoker. No alcohol use or drug use. No recent travel. 2 Clinical Report - Physicians/Mid Levels [facility] Emergency Department [address] [place] [address] Phone #: ext- [phone] 12/23/2020 13:55 Patient: ALIX RAO Sex: F : 2000 Age: 20yADDITIONAL NOTESThe nursing notes have been reviewed with agreement regarding the chief complaint, HPI, ROS, PMH andpatient medications and allergies.PHYSICAL EXAMVital Signs: 12/23/2020 13:57 BP: 117/82. MAP: 93. HR : 106. RR: 18. O2 saturation: 99%. Temp: 98.1 F.Pain level now: 0/10. Have been reviewed as abnormal and appear to be correct. Blood pressurenormal. Mean arterial pressure- normal. Tachycardic. Respiratory rate normal. Temperature normal.Oxygen saturation normal.Appearance: Alert. Oriented X3. No acute distress.Eyes: Pupils equal, round and reactive to light. Eyes normal inspection.ENT: Ears normal. Nose normal. Pharynx normal.Neck: Normal inspection. Neck supple.CVS: Normal heart rate and rhythm. Heart sounds normal. Pulses normal.Respiratory: No respiratory distress. Painless inspiration. Breath sounds normal. Chest nontender.Abdomen: Soft. Mild tenderness in the lower abdomen. Bowel sounds normal. No organomegaly. Nomass. Femoral pulses equal.Back: Normal inspection.Skin: Skin warm and dry. Normal skin color. No rash. Normal skin turgor.Extremities: Extremities exhibit normal ROM. No lower extremity edema.Neuro: Oriented X 3. No motor deficit. No sensory deficit. Reflexes normal.LABS, X-RAYS, AND EKGPelvic Sonogram: OB US- possible early IUP, ectopic not excluded due to bl free fluid in the adnexa. Recf/u US and bhcg. The study was independently viewed by me and interpreted by the radiologist andcontemporaneously by me. Interpretation time: 18:32 12/23/2020.Laboratory Tests: Laboratory tests have been ordered, with results reviewed and considered in themedical decision making process. Beta-HCG, Quant Serum: (VIVI: 12/23/2020 15:52) ( MsgRcvd 12/23/2020 16:45) Final results Test Result Flag Units (Reference) HCG QUANT 971.0 mIU/mL Interpretation: Less than 5 mU/mL: Negative 6-10 mU/mL: Borderline (suggest repeat in 48 hours) >10: Positive Approx HCG range (mU/mL) Weeks post LMP 5.4-708 mU/mL 3-4 Weeks 217-76071 mU/mL 5-6 Weeks 4059-016857 mU/mL 7-8 Weeks 26204-095752 mU/mL 9-10 Weeks 35776-06168 mU/mL 12-14 Weeks 64670-08732 mU/mL 15-16 Weeks 8240-32252 mU/mL 17-18 Weeks CBC w Diff: (IVVI: 12/23/2020 15:52) ( IngRcvd 12/23/2020 16:46) Final results Test Result Flag Units (Reference) CBC W/AUTOMATED DIFF COMPLETE BLOOD COUNT WBC 12.1 H 10/uL (4.2 - 11.0) RBC 4.74 10/uL (4.20 - 5.40) HEMOGLOBIN 12.8 g/dL (12.0 - 16.0) 3 Clinical Report - Physicians/Mid Levels [facility] Emergency Department [address] [place] [address] Phone #: ext- [phone] 12/23/2020 13:55 Patient: ALIX RAO [facility]#: [id number] Sex: F : 2000 Age: 20y HEMATOCRIT 37.9 % (37.0 - 47.0) MCV 80.0 L fL (81.0 - 101) MCH 27.0 pg (27.0 - 34.0) MCHC 33.8 g/dL (31.0 - 36.0) RDW 14.6 H % (11.5 - 14.5) PLATELETS 375 10/uL (150 - 450) MPV 8.3 fL (7.4 - 10.4) NEUT 75.9 % (37.0 - 80.0) LYMPH 19.4 L % (25.0 - 40.0) MONO 4.0 % (3.0 - 8.0) EOS 0.1 % (0.0 - 7.0) BASO 0.4 % (0.0 - 2.5) %IG 0.2 H % (0.0 - 0.0) %NRBC 0.0 % (0.0 - 0.0) #NEUT 9.21 H 10/uL (2.00 - 6.90) #LYMPH 2.35 10/uL (0.60 - 3.40) #MONO 0.49 10/uL (0.00 - 0.90) #EOS 0.01 10/uL (0.00 - 0.70) #BASO 0.05 10/uL (0.00 - 0.20) #IG 0.03 10/uL (0.00 - 0.10) #NRBC 0.00 10/uL (0.00 - 0.00) MANUAL DIFF NOT INDICATED RBC MORPH NOT INDICATEDCMP: (VIVI: 12/23/2020 15:52) ( MsgRcvd 12/23/2020 16:45) Final results Test Result Flag Units (Reference) COMPREHENSIVE METABOLIC PANEL COMPREHENSIVE METABOLIC PANEL SODIUM 140 mEq/L (134 - 153) POTASSIUM 3.7 mEq/L (3.6 - 5.0) CHLORIDE 104 mEq/L (98 - 107) CO2 21 L MEQ/L (22 - 30) GLUCOSE 90 MG/DL (70 - 99) BUN 7 MG/DL (7 - 21) CREATININE 0.4 L MG/DL (0.7 - 1.5) BUN/CREAT 18 (8 - 27) TOTAL PROTEIN 7.5 G/DL (6.3 - 8.2) ALBUMIN 4.8 G/DL (3.9 - 5.0) GLOBULIN 2.7 GM/DL (2.4 - 3.2) A/G RATIO 1.8 (0.8 - 2.0) CALCIUM 9.7 MG/DL (8.4 - 10.2) TOTAL BILI <0.7 MG/DL (0.2 - 1.3) ALKALINE PHOS 57 U/L (38 - 126) SGOT/AST 16 U/L (5 - 40) SGPT/ALT 12 U/L (7 - 56) ANION GAP 15.0 mmol/L (8.0 - 16.0) AGE 20 yrs NON-AA GFR >60 mL/min AFR AMER GFR >60 mL/min Male GFR Interprentation 20-49 yrs >60 mL/min Esagff21-10 yrs >56 mL/min Normal 60-69 yrs >49 mL/min Normal 70-79yrs>42 mL/min Normal 80 and above >35 mL/min Normal Female GFRInterpretation 20-39 yrs >60 mL/min Normal 40-49 yrs >58 mL/minNormal 50-59 yrs >51 mL/min Normal 60-69 yrs >45 mL/min Xmvymq50-09 yrs >39 mL/min Normal 80 and above >32 mL/min NormalLactic Acid: (VIVI: 12/23/2020 15:52) ( MsgRcvd 12/23/2020 16:05) Final results Test Result Flag Units (Reference) 4 Clinical Report - Physicians/Mid Levels [facility] Emergency Department [address] [place] [address] Phone #: ext- [phone] 12/23/2020 13:55 Patient: ALIX RAO [facility]#: [id number] Sex: F : 2000 Age: 20y LACTIC ACID 1.9 MMOL/L (0.2 - 2.2) Lipase: (VIVI: 12/23/2020 15:52) ( [facility] 12/23/2020 16:45) Final results Test Result Flag Units (Reference) LIPASE 24 U/L (13 - 60) Urinalysis: (VIVI: 12/23/2020 15:10) ( [facility] 12/23/2020 15:46) Final results Test Result Flag Units (Reference) URINALYSIS URINALYSIS SOURCE Clean Catch COLOR yellow (NORMAL: Yello CLARITY clear (NORMAL: Clear SPEC GRAVITY 1.025 (1.001 - 1.030 pH 5 (5 - 9) GLUCOSE NORM (NORMAL: Negat BILIRUBIN NEG (NORMAL: Negat KETONE 15 A (NORMAL: Negat PROTEIN NEG (NORMAL: Negat NITRITE NEG (NORMAL: Negat BLOOD 10 A (NORMAL: Negat LEUK EST NEG (NORMAL: Negat UROBILINOGEN NOR (less than 1.0 MICROSCOPIC See Below RBC 0 - 1 (NORMAL: NONE EPITHELIAL FEW (NORMAL: NONE BACTERIA Trace (NORMAL: NONE MUCOUS 1+ (NORMAL: NONE.PROGRESS AND PROCEDURESCourse of Care: 16:49 Dec 23 2020. Awaiting OB US results. Disposition: Discharged home in good and improved condition. Discharge decision based on the following: patient's condition is stable; patient's condition is improved; patient is ambulatory; patient is active; improving condition on repeat evaluation; social support is adequate; transportation is available; follow-up is available; clinical impression is consistent with outpatient treatment.CLINICAL IMPRESSION Ectopic . First trimester ; positive test in emergency department. (v. possible ectopic ).INSTRUCTIONS 5 Clinical Report - Physicians/Mid Levels [facility] Emergency Department [address] [place] [address] Phone #: ext- [phone] 12/23/2020 13:55 Patient: ALIX RAO [facility]#: [id number] Sex: F : 2000 Age: 20y No strenuous activity until better. Rest at home for one days. Do not work for two days. Drink plenty of fluids for the next 48 hours as needed. Avoid alcohol and NSAIDS. NSAIDS include aspirin, ibuprofen (Advil) and naproxen (Aleve). Avoid fatty, fried/greasy, lactose-containing (such as milk, cheese and ice cream), salty and spicy foods until better. No sexual contact until symptoms resolve. No alcohol. Do not smoke. (continue pre vitamins, continue tylenol for pain). Warnings: Further evaluation is necessary in order to conduct further tests and assess the possibility of serious illness. It is very important to follow up with a healthcare provider. GENERAL WARNINGS: Return or contact your physician immediately if your condition worsens or changes unexpectedly, if not improving as expected, or if other problems arise. SPECIFICALLY, return if you develop pain in the abdomen or pelvis, fever, vomiting, the inability to keep fluids down, blood in vomitus, blood in diarrhea , fainting, lightheadedness or vaginal bleeding; or for continued pain in the abdomen. Your Current Medications: . No home medication. Follow-up: Follow up with your healthcare provider in three days even if well. Call for the next available appointment. Reason for referral: evaluation and , F/u with your OB/PCM-recommend serial b-HCG testing and f/u OB US for ? ectopic v. IUP.. Summary of care provided to patient via paper. Understanding of the discharge instructions verbalized by patient. Expected course of illness, discharge instructions, activity level, follow-up appointment and risks and benefits of treatment reviewed with patient and understanding verbalized. Agrees to plan of care.(Electronically signed by CHOLO Wallace 12/23/2020 19:23) Name Value Range Interpretation Code Description Data Kary rce(s) Supporting Document(s) ID Date Data Source [id number] 12/23/2020 04:45:00 PM EDT [facility] Name Value Range Interpretation Code Description Data Kary rce(s) Supporting Document(s) Choriogonadotropin.intact [Units/volume] in Serum or Plasma 971.0 mIU /mL [facility] Interpr etation: Less than 5 mU/mL: Negative 6-10 mU/mL: Borderline (suggest repeat in 48 hours) >10: Positive Approx HCG range (mU/mL) Weeks post LMP 5.4-708 mU/mL 3-4 Weeks 217-86358 mU/mL 5-6 Weeks 4059-933989 mU/mL 7-8 Weeks 32215-551596 mU/mL 9-10 Weeks 37287-47441 mU/mL 12-14 Weeks 28305-31003 mU/mL 15-16 Weeks 8240- 72421 mU/mL 17-18 Weeks ID Date Data Source [id number] 12/23/2020 04:45:00 PM EDT [facility] Name Value Range Interpretation Code Description Data Kary rce(s) Supporting Document(s) Lipase [Enzymatic activity/volume] in Serum or Plasma 24 U/L 13 - 60 [facility] ID Date Data Source [id number] 12/23/2020 04:45:00 PM EDT [facility] Name Value Range Interpretation Code Description Data Kary rce(s) Supporting Document(s) COMPREHENSIVE METABOLIC PANEL [facility] COMPREHENSIVE METABOLIC PANEL Sodium [Moles/volume] in Serum or Plasma 140 mEq/L 134 - 153 [facility] Potassium [Moles/volume] in Serum or Plasma 3.7 mEq/L 3.6 - 5.0 [facility] Chloride [Moles/volume] in Serum or Plasma 104 mEq/L 98 - 107 [facility] Carbon dioxide, total [Moles/volume] in Serum or Plasma 21 MEQ/L 22 - 30 L [facility] Glucose [Mass/volume] in Serum or Plasma 90 MG/DL 70 - 99 [facility] BUN 7 MG/DL 7 - 21 [facility] Creatinine [Mass/volume] in Serum or Plasma 0.4 MG/DL 0.7 - 1.5 L [facility] BUN/CREAT 18 8 - 27 [facility] al Protein [Mass/volume] in Serum or Plasma 7.5 G/DL 6.3 - 8.2 [facility] Albumin [Mass/volume] in Serum or Plasma 4.8 G/DL 3.9 - 5.0 [facility] Globulin [Mass/volume] in Serum by calculation 2.7 GM/DL 2.4 - 3.2 [facility] A/G RATIO 1.8 0.8 - 2.0 [facility] Calcium [Mass/volume] in Serum or Plasma 9.7 MG/DL 8.4 - 10.2 [facility] Bilirubin.total [Mass/volume] in Serum or Plasma <0.7 MG/DL 0.2 - 1.3 [facility] Alkaline phosphatase [Enzymatic activity/volume] in Serum or Plasma 57 U/L 38 - 126 [facility] Aspartate aminotransferase [Enzymatic activity/volume] in Serum or Plasma 16 U/L 5 - 40 [facility] Alanine aminotransferase [Enzymatic activity/volume] in Seru m or Plasma 12 U/L 7 - 56 [facility] Anion gap 3 in Serum or Plasma 15.0 mmol/L 8.0 - 16.0 [facility] AGE 20 yrs [facility] al NON-AA GFR >60 mL/min [facility] ital AFR AMER GFR >60 mL/min [facility] sp[facility] Male GFR In terprentation 20-49 yrs >60 mL/min Normal 50-59 yrs >56 mL/min Normal 60-69 yrs >49 mL/min Normal 70-79yrs >42 mL/min Normal 80 and above >35 mL/min Normal Female GFR Interpretation 20-39 yrs >60 mL/min Normal 40-49 yrs >58 mL/min Normal 50-59 yrs >51 mL/min Normal 60-69 yrs >45 mL/min Normal 70-79 yrs >39 mL/min Normal 80 and above >32 mL/min Normal ID Date Data Source [id number] 12/23/2020 04:45:00 PM EDT [facility] Name Value Range Interpretation Code Description Data Kary rce(s) Supporting Document(s) CBC W/AUTOMATED DIFF [facility] COMPLETE BLOOD COUNT Leukocytes [#/volume] in Blood by Automated count 12.1 10^3/uL 4.2 - 11.0 H [facility] Erythrocytes [#/volume] in Blood by Automated count 4.74 10^6/uL 4. 20 - 5.40 [facility] Hemoglobin [Mass/volume] in Blood 12.8 g/dL 12.0 - 16.0 [facility] Hematocrit [Volume Fraction] of Blood by Automated count 37.9 % 3 7.0 - 47.0 [facility] Erythrocyte mean corpuscular volume [Entitic volume] by Auto mated count 80.0 fL 81.0 - 101 L [facility] Erythrocyte mean corpuscular hemoglobin [Entitic mass] by Automated count 27.0 pg 27.0 - 34.0 [facility] Erythrocyte mean corpuscular hemoglobin concentration [Mass/volume] by Automated count 33.8 g/dL 31.0 - 36.0 [facility] Erythrocyte distribution width [Ratio] by Automated count 14.6 % 11.5 - 14.5 H [facility] Platelets [#/volume] in Blood by Automated count 375 10^3/uL 150 - 45 0 [facility] Platelet mean volume [Entitic volume] in Blood by Automated count 8.3 fL 7.4 - 10.4 [facility] Neutrophils/100 leukocytes in Blood by Automated count 75.9 % 37. 0 - 80.0 [facility] Lymphocytes/100 leukocytes in Blood by Manual count 19.4 % 25.0 - 40.0 L [facility] Monocytes/100 leukocytes in Blood by Automated count 4.0 % 3.0 - 8.0 [facility] Eosinophils/100 leukocytes in Blood by Automated count 0.1 % 0.0 - 7.0 [facility] Basophils/100 leukocytes in Blood by Automated count 0.4 % 0.0 - 2.5 [facility] %IG 0.2 % 0.0 - 0.0 [facility] %NRBC 0.0 % 0.0 - 0.0 [facility] al Neutrophils [#/volume] in Blood by Automated count 9.21 10^3/uL 2.00 - 6.90 H [facility] Lymphocytes [#/volume] in Blood by Automated count 2.35 10^3/uL 0.60 - 3.40 [facility] Monocytes [#/volume] in Blood by Automated count 0.49 10^3/uL 0.00 - 0.90 [facility] Eosinophils [#/volume] in Blood by Automated count 0.01 10^3/uL 0.00 - 0.70 [facility] Basophils [#/volume] in Blood by Automated count 0.05 10^3/uL 0.00 - 0.20 [facility] #IG 0.03 10^3/uL 0.00 - 0.10 [facility] #NRBC 0.00 10^3/uL 0.00 - 0.00 [facility] ospital MANUAL DIFF NOT INDICATED [facility] RBC MORPH NOT INDICATED [facility] ID Date Data Source [id number] 12/23/2020 04:05:00 PM EDT [facility] Name Value Range Interpretation Code Description Data Kary rce(s) Supporting Document(s) Lactate [Moles/volume] in Serum or Plasma 1.9 MMOL/L 0.2 - 2.2 [facility] ID Date Data Source [id number] 12/23/2020 03:45:00 PM EDT [facility] Name Value Range Interpretation Code Description Data Kary rce(s) Supporting Document(s) URINALYSIS [facility] bethanie URINALYSIS SOURCE Clean Catch [facility] ital COLOR yellow NORMAL: Yellow [facility] CLARITY clear NORMAL: Clear [facility] spital Specific gravity of Urine by Test strip 1.025 1.001 - 1.030 [facility] pH 5 5 - 9 [facility] Glucose [Mass/volume] in Urine by Test strip NORM NORMAL: Negat [facility] Bilirubin.total [Presence] in Urine by Test strip NEG NORMAL: Negative [facility] Ketones [Presence] in Urine by Test strip 15 NORMAL: Negative A [facility] Protein [Mass/volume] in Urine by Test strip NEG NORMAL: Negat [facility] Nitrite [Presence] in Urine by Test strip NEG NORMAL: Negative [facility] BLOOD 10 NORMAL: Negative A [facility] Leukocyte esterase [Presence] in Urine by Test strip NEG DEEJAY L: Negative [facility] Urobilinogen [Mass/volume] in Urine by Test strip NOR less rosie n 1.0 mg/dL [facility] MICROSCOPIC See Below [facility] ital Erythrocytes [#/volume] in Urine by Test strip 0 - 1 NORMAL: NON E SEEN [facility] EPITHELIAL FEW NORMAL: NONE SEEN [facility] Bacteria [Presence] in Urine sediment by Light microscopy Tr denis NORMAL: NONE SEEN [facility] Mucus [Presence] in Urine sediment by Light microscopy 1+ NOR MAL: NONE SEEN [facility] Procedure Social History Code Duration Value Status Description Data Source(s ) Smoking 08/07/2021 12:00:00 AM EST Never Smoker completed Never S moker eCW1 ([facility]) Smoking 08/07/2021 12:00:00 AM EST Never Smoker completed Never S moker eCW1 ([facility]) Smoking 08/07/2021 12:00:00 AM EST Never Smoker completed Never S moker eCW1 ([facility]) Smoking 07/31/2021 12:00:00 AM EST Never Smoker completed Never S moker eCW1 ([facility]) Smoking 07/31/2021 12:00:00 AM EST Never Smoker completed Never S moker eCW1 ([facility]) Smoking 07/27/2021 12:00:00 AM EST Never Smoker completed Never S moker eCW1 ([facility]) Smoking 06/23/2021 12:00:00 AM EDT Never Smoker completed Never S moker eCW1 ([facility]) Smoking 06/14/2021 12:00:00 AM EDT Never Smoker completed Never S moker eCW1 ([facility]) Vital Signs ID Date Data Source UNK Name Value Range Interpretation Code Description Data Source(s) Body weight 201 [lb_av] 201 [lb_av] eCW1 ([facility]) Body weight 91.17 kg 91.17 kg eCW1 ([facility]) Body height 59 [in_i] 59 [in_i] eCW1 ([facility]) Body mass index (BMI) [Ratio] 40.597 kg/m2 40.5 97 kg/m2 eCW1 ([facility]) Systolic blood pressure 114 mm[Hg] 114 mm[Hg] e CW1 ([facility]) Diastolic blood pressure 78 mm[Hg] 78 mm[Hg] eCW1 ([facility]) Body weight 199.6 [lb_av] 199.6 [lb_av] eCW1 ([facility]) Body weight 90.54 kg 90.54 kg eCW1 ([facility]) Body height 59 [in_i] 59 [in_i] eCW1 ([facility]) Body mass index (BMI) [Ratio] 40.314 kg/m2 40.3 14 kg/m2 eCW1 ([facility]) Systolic blood pressure 1120 mm[Hg] 1120 mm[Hg] eCW1 ([facility]) Diastolic blood pressure 78 mm[Hg] 78 mm[Hg] eCW1 ([facility]) Body weight 198.2 [lb_av] 198.2 [lb_av] eCW1 ([facility]) Body weight 89.9 kg 89.9 kg eCW1 ([facility]) Body height 59 [in_i] 59 [in_i] eCW1 ([facility]) Body mass index (BMI) [Ratio] 40.032 kg/m2 40.0 32 kg/m2 eCW1 ([facility]) Systolic blood pressure 118 mm[Hg] 118 mm[Hg] e CW1 ([facility]) Diastolic blood pressure 82 mm[Hg] 82 mm[Hg] eCW1 ([facility]) Body weight 190.8 [lb_av] 190.8 [lb_av] eCW1 ([facility]) Body weight 86.55 kg 86.55 kg eCW1 ([facility]) Body height 59 [in_i] 59 [in_i] eCW1 ([facility]) Diastolic blood pressure 74 mm[Hg] 74 mm[Hg] eCW1 ([facility]) Body mass index (BMI) [Ratio] 38.537 kg/m2 38.5 37 kg/m2 eCW1 ([facility]) Systolic blood pressure 118 mm[Hg] 118 mm[Hg] e CW1 ([facility]) Body weight 187.4 [lb_av] 187.4 [lb_av] eCW1 ([facility]) Body height 59 [in_i] 59 [in_i] eCW1 ([facility]) Body mass index (BMI) [Ratio] 37.85 kg/m2 37.85 kg/m2 eCW1 ([facility]) Systolic blood pressure 118 mm[Hg] 118 mm[Hg] e CW1 ([facility]) Diastolic blood pressure 70 mm[Hg] 70 mm[Hg] eCW1 ([facility]) Patient Treatment Plan of Care Planned Activity Planned Date Details Description Data Source (s) Famotidine 40 MG Oral Tablet [Pepcid] 06/14/2021 12:00:00 AM EDT eCW1 ([facility]) Famotidine 40 MG Oral Tablet [Pepcid] 06/14/2021 12:00:00 AM EDT eCW1 ([facility])
--- OUTSIDE RECORDS SUMMARY | 2021-08-23 23:36 | CCD | Continuity of Care Document ---
Author Author Ritika LR M.D. Organization Unknown Address [address] [place] [address] Phone [phone] Problems Description No Information Available Social History Type Date Description Comments Sex Unknown Allergies, Adverse Reactions, Alerts Description No Information Available Medications Description No Information Available Immunizations Description No Information Available Vital Signs Description No Information Available Results Description No Information Available Procedures Date Code Description Status 05/30/2021 40266 Office/Outpatient Established Mo d MDM 30-39 Min Completed 05/02/2021 81194 EEG Recording Awake & Asleep Com pleted 05/02/2021 31033 EEG Recording Awake & Asleep Com pleted 04/13/2021 47801 MRI Brain W/O Contrast Completed 04/13/2021 18398 MRI Brain W/O Contrast Completed 04/13/2021 76237 Magnetic Resonance Angiography N elida W/O Contrast Materials Completed 04/13/2021 69243 Magnetic Resonance Angiography N elida W/O Contrast Materials Completed 04/13/2021 96560 Magnetic Resonance Angiogtaphy H ead W/O Contrast Material(S) Completed 04/13/2021 91125 Magnetic Resonance Angiogtaphy H ead W/O Contrast Material(S) Completed 03/28/2021 09256 Office Consultation Level 4 Comp leted Medical Devices Description No Information Available Encounters Type Date Location Provider Dx Diagnosis Office Visit 05/30/2021 9:15a Main office - Cristina Lr M.D. I72.9 Aneurysm of unspecified site R55 Syncope and collapse R94.02 Abnormal brain scan Office Visit 03/28/2021 12:30p Main office - Cristina Lr M.D. R55 Syncope and collapse R42 [...]
--- OUTSIDE RECORDS SUMMARY | 2021-08-23 23:36 | CCD ---
Author Author [facility] Organization [facility] Address Unknown Phone Unavailable Care Team Providers Care Salesperson Wigs Name Role Phone Joseline Barahona Unavailable PROBLEMS Type Condition ICD9-CM Code PIL67-QN Code Onset Dates Condition S tatus W/U Status Risk SNOMED Code Notes Problem Supervision of other normal Z34.80 Ac tive confirm [id number] ALLERGIES No Known Allergies ENCOUNTERS from 2000 to 2021-08-03 Encounter Location Date Provider Diagnosis [facility] [address] [place] [address] [place] [address] Jul, Joseline Barahona 36 weeks gestatio n of Z3A.36 and Encounter for supervision of normal in multigravida in third trimester Z34.83 IMMUNIZATIONS Vaccine Route Administration Date Status TDAP [...] FOR REFERRAL No Information VITAL SIGNS Weight 199.6 lbs Jul, Weight-kg 90.54 kg Jul, Height 59 in Jul, BMI 40.314 kg/m2 Jul, Blood pressure systolic 1120 mm Hg Jul, Blood pressure diastolic 78 mm Hg Jul, MEDICATIONS Medication SIG (Take, Route, Frequency, Duration) Notes Start Da te End Date Status 27-1 MG 1 tablet Orally Once a day Active Iron 325 (65 Fe) MG 1 tablet Orally Once a day Active Pepcid 40 MG 1 tablet at bedtime Orally Once a day for 30 day(s) May, Active PROCEDURES No Information RESULTS No Results REASON FOR VISIT 1 wk pn per broni MEDICAL (GENERAL) HISTORY Type Description Date Medical [...] Treatment Notes Treatm ent Clinical Notes Jul, 36 weeks gestation of (ICD-10 - Z3A.36 ) Jul, Encounter for supervision of normal in multigravida in third trimester (ICD-10 - Z34.83) PLAN OF TREATMENT Next Appt Details 1 Week Reason:- Routine follow up [facility] 2021-08-[facility] 09:20:00 AM, [address] [facility], , [place], [address], Follow Up:1 Week- Routine follow up Insurance Providers Payer Name Payer Address Payer Phone Insured Name Patient Relati onship to Insured Coverage Start Date Coverage End Date [place] [id number] [phone] ALIX RAO self
[2021-08-24] VITALS (44 sets, daily range): BP systolic 81–138; BP diastolic 50–87
[2021-08-24] MEDS ORDERED: LACTATED RINGER'S 1000 ML IV STA (00:01)
[2021-08-24] MEDS ORDERED: CARBOPROST TROMETHAMINE 250 MCG/ML AMP IM PRN (00:05)
[2021-08-24] MEDS ORDERED: OXYTOCIN DRIP 30 UNITS in IV 1 EA IV PRN (00:05)
[2021-08-24] MEDS ORDERED: LIDOCAINE 1% MDV 20ML VIAL INFIL PRN (00:05)
[2021-08-24] MEDS ORDERED: TRANEXAMIC ACID INJection 1,000 MG in NS 100 ML IV PRN (00:05)
[2021-08-24] MEDS ORDERED: METHYLERGONOVINE MALEATE 0.2 MG/ML VIAL (J2210) IM PRN (00:05)
--- NOTE | 2021-08-24 00:24 | HPEPDOC ---
Obstetrical History & Physical General Date of Admission Aug 23, 2021 at 23:32 Primary Care Physician: ROGER GUERRA CNM History of Present Illness Ritika is a 21-year-old female who is a at 39.4 weeks gestation with an LAINEY of 08/27/21 based off of her first trimester ultrasound. She initiated in her first trimester of with [facility] and transferred care to [facility]. Her has been complicated by obesity. She presents to labor and delivery with complaints of contractions. She denies leaking of fluid or vaginal bleeding. Reports baby has been moving well. 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 ABDOMEN: Gravid and non-tender to touch. FETUS: Is vertex (VTX) by sterile vaginal examination (SVE), fetus is vertex (VTX) by Yamil. LUNGS: Regular rate and rhythm EXTREMITIES: Generalized edema. No clonus. Vital Signs/I&O Vital Signs Date Time Temp Pulse Resp B/P (MAP) Pulse Ox O2 Delivery O2 Flow Rate FiO2 08/23/21 22:59 97.5 Laboratory Data 24H LABS Laboratory Tests 2 08/23/21 23:44: Serology Scanned Report Hepatitis B Testing Pertinent Laboratoy Data Blood Type: O+ RBC Antibody Screen: Negative HIV: Negative Rapid Plasma Reagin: Nonreactive Rubella: Immune Chlamydia/Gonorrhea: Negative Group B Streptococcus: Negative Glucose Tolerance Test: 99 Anatomy Ultrasound Ultrasound Date: May 09, 2021 Placenta Location: Posterior Normal Anatomy: Yes Placenta Previa: No Vaginal Examination Dilation: 4 cm Effacement: 90% Station: -1 Cervical Consistency: Soft Cervical Position: Anterior Presentation: Cephalic presentation Assessment Heart Rate (FHR): 130 Variability: Moderate Accelerations: Positive Decelerations: None Tocometer Contractions: Yes Frequency: regular, every 2-5 min. Assessment/Plan Assessment IUP at 39.4 weeks gestation active labor GBS negative Category I FHR tracing Plan Admit to labor and delivery. OOB ad aracelis. Diet: clears. Group B Streptococcus (GBS) negative. Labs and intravenous (IV) per unit protocol. Anesthesia consult per patient's request. Lactated Ringers (LR): Bolus 800 mL, then at 125 mL/hr. Anticipate cervical change. C-S as appropriate. ROGER GUERRA CNM Aug 24, 2021 00:24
[2021-08-24 00:45] LABS: HEMATOCRIT 36.5 % (36.0-47.0); HEMOGLOBIN 11.6 g/dl (12.0-15.5); MEAN CORPUSCULAR HEMOGLOBIN 26.5 pg (27.0-33.0); MEAN CORPUSCULAR HGB CONC 31.8 g/dl (32.0-36.5); MEAN CORPUSCULAR VOLUME 83.3 fl (80.0-96.0); PLATELET COUNT, AUTOMATED 320 10^3/uL (150-450); RED BLOOD COUNT 4.38 10^6/uL (4.00-5.40); WHITE BLOOD COUNT 18.2 10^3/uL (4.0-10.0)
[2021-08-24] MEDS ORDERED: FENTANYL 2MCG/ML ROPIVACAINE 0.2% IN 0.9% NACL 100ML IVBAG As Ordered ONE (00:46)
[2021-08-24] MEDS ORDERED: EPIDURAL COMMENT XX SCH (00:52)
[2021-08-24] MEDS ORDERED: LACTATED RINGER'S 1000 ML IV PRN (00:52)
[2021-08-24] MEDS ORDERED: REFRIGERATOR IV KEYS XX PRN (00:52)
[2021-08-24] MEDS ORDERED: EPIDURAL/PCA KEYS XX PRN (00:52)
[2021-08-24] MEDS ORDERED: ONDANSETRON 4MG/2ML VIAL IV PRN ×2 (00:52→13:00)
[2021-08-24] MEDS ORDERED: diphenhydrAMINE 50MG/ML VIAL (J1200) IV PRN (00:52)
[2021-08-24] MEDS: FENTANYL/ROPIVACAINE/NACL BAG 100 ML EPIDURAL SCH ×2 (00:52→10:51)
[2021-08-24] MEDS ORDERED: NALOXONE INJ 0.4MG/1ML VIAL (J2310 PER 1MG) IV PRN (00:52)
[2021-08-24] MEDS: LR 1,000 ML IV SCH ×4 (01:28→10:23)
[2021-08-24] MEDS ORDERED: OXYTOCIN 30 UNITS IN 0.9% NaCl 500ML IV BAG (J2590) As Ordered ONE (03:06)
[2021-08-24] MEDS: ePHEDrine SULFATE 25 MG/5 ML(5MG/ML) SYRINGE IV PRN ×2 (05:12→09:18)
[2021-08-24] MEDS ORDERED: ACETAMINOPHEN 500 MG TAB PO ONE (07:45)
[2021-08-24] MEDS ORDERED: FAMOTIDINE 20 MG TAB PO SCH (09:00)
[2021-08-24] MEDS ORDERED: IBUPROFEN 600MG TAB PO PRN (13:00)
[2021-08-24] MEDS ORDERED: OXYTOCIN DRIP 30 UNITS in IV 1 EA IV ONE (13:00)
[2021-08-24] MEDS ORDERED: ACETAMINOPHEN TAB 650MG DOSE (2X325MG) PO PRN (13:00)
[2021-08-24] MEDS ORDERED: LIDOCAINE 1% MDV 20ML VIAL INFIL ONE (13:00)
[2021-08-24] MEDS ORDERED: MEASLES,MUMPS,RUBELLA VACCINE INJ (MMR-II) (90707) SC SCH (13:00)
[2021-08-24] MEDS ORDERED: RHOGAM 300 MCG (1500 IU) INJ (J2790) IM SCH (13:00)
[2021-08-24] MEDS ORDERED: METHYLERGONOVINE MALEATE 0.2 MG TAB PO PRN (13:00)
[2021-08-24] MEDS ORDERED: DIBUCAINE 1% OINTMENT 30GM TOP PRN (13:00)
--- NOTE | 2021-08-24 13:06 | DNPDOC ---
[facility] Delivery Note Delivery Note DATE OF DELIVERY: August 24, 2021 PREDELIVERY DIAGNOSIS: 39-3/7 weeks' gestation and labor. POST DELIVERY DIAGNOSIS: Delivered. PROCEDURE: Spontaneous vaginal delivery. PRINT PRODUCTION MANAGER: Dr. Gillian Hancock MD ANESTHESIA: Epidural. ESTIMATED BLOOD LOSS: 300 mL. FINDINGS: 7 pound 4 ounce male , Score 8/9, nuchal cord times 1. DELIVERY SUMMARY: Patient is a 21-year-old 2 now para 1011] who was admitted to labor and delivery for active labor. She progressed to become fully dilated. She had AROM performed. After a 40 minute second stage of labor she had a spontaneous vaginal delivery of a 7 lb. 4 oz male infant. Nuchal cord x 1 reduced. Shoulders delivered with ease. handed to mother. Cord double clamped and cut. Placenta delivered spontaneously and appeared intact. IV Pitocin given immediately after delivery. A first degree perineal laceration repaired with 2-O Chromic in the usual fashion. Sponge and needle counts correct. GILLIAN HANCOCK MD Aug 24, 2021 13:06
[2021-08-24] MEDS: IBUPROFEN 800 MG TAB PO PRN (13:31)
[2021-08-24] MEDS: ACETAMINOPHEN 500 MG TAB PO PRN ×2 (14:28→22:49)
[2021-08-24] MEDS: DOCUSATE SODIUM 100MG CAPSULE PO PRN (20:28)
[2021-08-25] MEDS: IBUPROFEN 800 MG TAB PO PRN (03:05)
[2021-08-25 06:00] VITALS: BP 117/63
[2021-08-25] MEDS: ACETAMINOPHEN 500 MG TAB PO PRN ×2 (08:38→17:53)
[2021-08-25] MEDS: PRENATAL VITAMINS CHEWABLE TABLET PO SCH (08:38)
--- NOTE | 2021-08-25 10:33 | IPNPDOC ---
Progress Note Date of Service: Aug 25, 2021 Day#: 1 Progress Note SUBJECT: Ritika is a 21-year-old female who is now a who presented to labor and delivery in active labor. She had a vaginal delivery of a living male over a first degree laceration. She reports she is ambulating without getting dizzy, eating a regular diet without nausea and voiding. She is bottle feeding her . OBJECTIVE: VITAL SIGNS: see below Alert and oriented times three. Sitting up in bed eating breakfast. Respiratory: Regular rate, no use of accessory muscles. Abdomen: Fundus firm at U. Minimal lochia. ASSESSMENT: day 1 PLAN: 1. Continue supportive nursing care. 2. Anticipate discharge to home tomorrow. 3. Encouraged to shower and ambulate around room. VS, I&O, 24H, Fishbone Vital Signs/I&O Vital Signs Date Time Temp Pulse Resp B/P (MAP) Pulse Ox O2 Delivery O2 Flow Rate FiO2 08/25/21 06:00 98.9 83 16 117/63 (81) 99 Room Air I&O- Last 24 Hours up to 6 AM 08/25/21 06:00 Intake Total 3172.3 ml Output Total 2075 ml Balance 1097.3 ml ROGER GUERRA CNM Aug 25, 2021 10:33
[2021-08-25 18:00] VITALS: BP 126/66
[2021-08-26] MEDS: ACETAMINOPHEN 500 MG TAB PO PRN ×2 (03:38→09:59)
[2021-08-26 06:00] VITALS: BP 119/61
[2021-08-26] MEDS: PRENATAL VITAMINS CHEWABLE TABLET PO SCH (09:58)
[2021-08-26] MEDS: DOCUSATE SODIUM 100MG CAPSULE PO PRN (09:58)
== END 2021-08-26 13:25 | disposition home or self-care (01) | DRG 807 ==
LOC: M LDO 22:42 → M LDI 23:32 → M OBS 08-24 14:24
PROVIDERS: ADMIT Advanced Practice Midwife; ATTEND Specialist
PROC: 10E0XZZ Delivery of Products of Conception, External Approach (ICD-10-PCS; principal; 2021-08-24)
PROC: 0HQ9XZZ Repair Perineum Skin, External Approach (ICD-10-PCS; 2021-08-24)
PROC: 10907ZC Drainage of Amniotic Fluid, Therapeutic from Products of Conception, Via Natural or Artificial Opening (ICD-10-PCS; 2021-08-24)
DX: O99.214 Obesity complicating childbirth (principal); Z37.0 Single live birth; E66.9 Obesity, unspecified; Z3A.39 39 weeks gestation of pregnancy; O70.0 First degree perineal laceration during delivery; O69.81X0 Labor and delivery complicated by cord around neck, without compression, not applicable or unspecified

== ENCOUNTER → 2021-11-02 | Outpatient (REF) | payer OTHER | LOC: M WUC 20:14 | PROVIDERS: ATTEND Physician Assistant | DX: M54.50 Low back pain, unspecified (principal) ==